=== PATIENT | female | born 1970 | race Caucasian/White ===

== ENCOUNTER 2016-11-26 18:09 | Inpatient (IN) | payer BC ==
[2016-11-26] MEDS ORDERED: HYDROmorphone 1 MG/ML 1 ML SYRINGE IVP STA ×2 (20:12→22:30)
[2016-11-26] MEDS ORDERED: METOCLOPRAMIDE 5 MG/ML 2 ML VIAL IVP STA (20:12)
--- NOTE | 2016-11-26 20:16 | ED ---
General Adult HPI - General Chief complaint: Headache Stated complaint: headache Time Seen by Provider: 11/26/16 19:52 Source: patient, family, RN notes reviewed Mode of arrival: wheelchair Limitations: no limitations - History of Present Illness Initial comments: Chief complaint and history of present illness a 46-year-old female here for complaint of headache and fever for 3 days. Nausea vomiting when she takes Motrin. Patient did not get a flu shot this year. - Related Data Home Medications Medication Instructions Recorded Confirmed Acetaminophen Tab [Tylenol Tab] 650 mg PO Q4H PRN 11/26/16 11/26/16 Ibuprofen [Motrin] 600 mg PO Q6HR PRN 11/26/16 11/26/16 Allergies Allergy/AdvReac Type Severity Reaction Status Date / Time antihistamines Allergy Unknown Uncoded 11/26/16 19:07 decongestants Allergy Unknown Uncoded 11/26/16 19:07 Review of Systems ROS Statement: Those systems with pertinent positive or pertinent negative responses have been documented in the HPI. Review of systems. The patient has a headache mild photophobia. No sore throat no chest pain no cough. Vomited once after taking Motrin. Muscle aches and pains that her whole body. No rashes. No diarrhea. All systems reviewed. Past medical problems none. Surgeries include appendectomy, , cyst on her neck and jaw. Patient's family history significant for mother with kidney cancer. Patient has ALLERGIES to antihistamines. She does not smoke she drinks occasional alcohol socially. ROS Other: All systems not noted in ROS Statement are negative. Past Medical History Past Medical History: No Reported History History of Any Multi-Drug Resistant Organisms: None Reported Past Surgical History: Appendectomy, Section Additional Past Surgical History / Comment(s): jaw, cyst on neck removed Past Psychological History: No Psychological Hx Reported Smoking Status: Former smoker Past Alcohol Use History: Occasional Past Drug Use History: None Reported General Exam - General Exam Comments Initial Comments: General: The patient is awake and alert, complaining of a headache for 3 days, fever today temp 100. Photophobia. Nausea vomiting after taking Tylenol for pain and fever. Vital signs temp 100.0 pulse 89 respiratory rate 20 pulse ox 97% room air blood pressure 166 over levators systolic and diastolic most likely due to her pain. Eye: Pupils are equal, round and reactive to light, extra-ocular movements are intact ; there is normal conjunctiva bilaterally. No signs of icterus. Ears, nose, mouth and throat: There are moist mucous membranes and no oral lesions. Neck: Neck discomfort when she looks left and right flexes. No meningismus Cardiovascular: There is a regular rate and rhythm. No murmur, rub or gallop is appreciated. Respiratory: Lungs are clear to auscultation, respirations are non-labored, breath sounds are equal. No wheezes, stridor, rales, or rhonchi. Gastrointestinal: Soft, non-distended, non-tender abdomen without masses or organomegaly noted. There is no rebound or guarding present. No CVA tenderness. Bowel sounds are unremarkable. Musculoskeletal: Normal ROM, no tenderness, There is no pedal edema. There is no calf tenderness or swelling. Sensation intact. Pulses equal bilaterally 2+. Neurological: CN II-XII intact, There are no obvious motor or sensory deficits. Coordination appears grossly intact. Speech is normal. No neuro deficits Skin: Skin is warm and dry and no rashes or lesions are noted. Limitations: no limitations Course Vital Signs 11/26/16 11/26/16 11/26/16 19:06 21:03 22:29 Temperature 100 F H 99.9 F H 99.6 F Pulse Rate 89 77 74 Respiratory 20 18 18 Rate Blood Pressure 166/89 144/81 150/76 O2 Sat by Pulse 97 95 99 Oximetry Procedures - Procedures Initial comment: Procedure; sterile technique was used for lumbar puncture. Permission was obtained from the patient the patient was given the procedure and possible complications. The patient was sitting up position. The L4 space was identified. Area was cleaned well Betadine and then anesthetized with 1% Xylocaine. #20 lumbar needle was used. She will follow fluid was obtained without difficulty. Looked clear on bedside examination. Is for samples were sent to the laboratory with request for cell count Gram stain protein glucose and culture of CSF. Patient tolerated procedure well. Betadine was washed off the area sterile bandage applied over the LP site. Patient was laid flat. Advised to stay flat for the next hour. She'll continue to receive IV fluids and [address] Agrawal Medical Decision Making - Medical Decision Making Medical decision making; white count 8.3 hemoglobin 14 hematocrit of 42. Potassium is 4.6 with a BUN of 8 creatinine 0.6 and GFR greater than 60. Glucose 109. CT the brain was done and reviewed radiologist his impression is there is no acute intracranial hemorrhage, mass effect, or midline shift identified. The ventricles and sulci within normal limits in size. The globes are intact and the visualized sinuses are clear. Impression; no acute intracranial hemorrhage , mass effect, or midline shift seen. As read by Dr. Masterson We discussed the findings of the labs and CAT scan. The patient still has a headache more in the left trapezius muscle belly did discuss possibility of a viral type meningitis several the patient agrees to an LP to rule out meningitis. The lab reports tube #4. Clear it showed 8 rbc's 350 nucleated cells of which only 17% were polys 83% mononuclear white cells glucose 81 protein 175. These numbers were discussed with infectious disease doctor, Dr. Cummins. He recommends Rocephin 2 g every 12 until the cultures and Gram stain are complete. Gram stain showed rare poly-1 nuclear's, no organisms. I explained to the patient the findings. We discussed viral versus bacterial. The patient has a mild headache. - Lab Data Result diagrams: 11/26/16 20:42 11/26/16 20:42 Lab Results 11/26/16 11/26/16 11/26/16 Range/Units 20:42 20:42 20:42 WBC 8.3 (3.8-10.6) k/uL RBC 5.03 (3.80-5.40) m/uL Hgb 14.1 (11.4-16.0) gm/dL Hct 42.3 (34.0-46.0) % MCV 84.1 (80.0-100.0) fL MCH 28.1 (25.0-35.0) pg MCHC 33.4 (31.0-37.0) g/dL RDW 12.5 (11.5-15.5) % Plt Count 269 (150-450) k/uL Neutrophils % 83 % Lymphocytes % 11 % Monocytes % 4 % Eosinophils % 0 % Basophils % 0 % Neutrophils # 6.9 (1.3-7.7) k/uL Lymphocytes # 0.9 L (1.0-4.8) k/uL Monocytes # 0.4 (0-1.0) k/uL Eosinophils # 0.0 (0-0.7) k/uL Basophils # 0.0 (0-0.2) k/uL Sodium 139 (137-145) mmol/L Potassium 4.6 (3.5-5.1) mmol/L Chloride 104 (98-107) mmol/L Carbon Dioxide 21 L (22-30) mmol/L Anion Gap 14 mmol/L BUN 8 (7-17) mg/dL Creatinine 0.60 (0.52-1.04) mg/dL Est GFR (MDRD) Af Amer >60 (>60 ml/min/1.73 sqM) Est GFR (MDRD) Non-Af >60 (>60 ml/min/1.73 sqM) Glucose 109 H (74-99) mg/dL Calcium 9.3 (8.4-10.2) mg/dL Total Bilirubin 0.8 (0.2-1.3) mg/dL AST 20 (14-36) U/L ALT 32 (9-52) U/L Alkaline Phosphatase 77 (38-126) U/L Total Protein 7.8 (6.3-8.2) g/dL Albumin 4.4 (3.5-5.0) g/dL CSF Tube Number CSF Volume CSF Appearance CSF Color CSF RBC (0-10) u/L CSF Tot Nucleated Cells (0-5) u/L CSF Mononuclear WBCs % % CSF Polynuclear WBCs % % CSF Glucose (40-70) mg/dL CSF Total Protein (12-60) mg/dL Influenza Type A RNA Not Detected (Not Detectd) Influenza Type B (PCR) Not Detected (Not Detectd) 11/26/16 Range/Units 22:17 WBC (3.8-10.6) k/uL RBC (3.80-5.40) m/uL Hgb (11.4-16.0) gm/dL Hct (34.0-46.0) % MCV (80.0-100.0) fL MCH (25.0-35.0) pg MCHC (31.0-37.0) g/dL RDW (11.5-15.5) % Plt Count (150-450) k/uL Neutrophils % % Lymphocytes % % Monocytes % % Eosinophils % % Basophils % % Neutrophils # (1.3-7.7) k/uL Lymphocytes # (1.0-4.8) k/uL Monocytes # (0-1.0) k/uL Eosinophils # (0-0.7) k/uL Basophils # (0-0.2) k/uL Sodium (137-145) mmol/L Potassium (3.5-5.1) mmol/L Chloride (98-107) mmol/L Carbon Dioxide (22-30) mmol/L Anion Gap mmol/L BUN (7-17) mg/dL Creatinine (0.52-1.04) mg/dL Est GFR (MDRD) Af Amer (>60 ml/min/1.73 sqM) Est GFR (MDRD) Non-Af (>60 ml/min/1.73 sqM) Glucose (74-99) mg/dL Calcium (8.4-10.2) mg/dL Total Bilirubin (0.2-1.3) mg/dL AST (14-36) U/L ALT (9-52) U/L Alkaline Phosphatase (38-126) U/L Total Protein (6.3-8.2) g/dL Albumin (3.5-5.0) g/dL CSF Tube Number 4 CSF Volume 1.0 CSF Appearance Clear CSF Color Colorless CSF RBC 8 (0-10) u/L CSF Tot Nucleated Cells 350 H (0-5) u/L CSF Mononuclear WBCs % 83 % CSF Polynuclear WBCs % 17 % CSF Glucose 51 (40-70) mg/dL CSF Total Protein 175 H (12-60) mg/dL Influenza Type A RNA (Not Detectd) Influenza Type B (PCR) (Not Detectd) Disposition Clinical Impression: Meningitis Disposition: ADMITTED IP TO THIS HOSP Condition: Serious
[2016-11-26] MEDS: SODIUM CHLORIDE 0.9% 1,000 ML IV STA ×2 (20:37→21:39)
[2016-11-26 21:11] LABS: Basophils % (A) 0 %; CH 28.7; CHCM 34.3; Eosinophils % (A) 0 %; HCT 42.3 % (34.0-46.0); HDW 2.73; HGB 14.1 gm/dL (11.4-16.0); Luc % (Auto) 1; Lymphocytes # (A) 0.9 k/uL (1.0-4.8); Lymphocytes % (A) 11 %; MCH 28.1 pg (25.0-35.0); MCHC 33.4 g/dL (31.0-37.0); MCV 84.1 fL (80.0-100.0); Mean Platelet Volume 7.3; Monocytes # (A) 0.4 k/uL (0-1.0); Monocytes % (A) 4 %; Neutrophils # (A) 6.9 k/uL (1.3-7.7); Neutrophils % (A) 83 %; RBC 5.03 m/uL (3.80-5.40); RDW 12.5 % (11.5-15.5); WBC 8.3 k/uL (3.8-10.6); WBC (Perox) 8.54
[2016-11-26 21:27] LABS: ALT 32 U/L (9-52); AST 20 U/L (14-36); Alkaline Phosphatase 77 U/L (38-126); Anion Gap 14 mmol/L; Blood Urea Nitrogen 8 mg/dL (7-17); Calcium 9.3 mg/dL (8.4-10.2); Carbon Dioxide 21 mmol/L (22-30); Chloride 104 mmol/L (98-107); Glucose 109 mg/dL (74-99); Non-African American GFR(MDRD) >60 (>60 ml/min/1.73 sqM); Potassium 4.6 mmol/L (3.5-5.1); Sodium 139 mmol/L (137-145); Total Bilirubin 0.8 mg/dL (0.2-1.3); Total Protein 7.8 g/dL (6.3-8.2)
--- NOTE | 2016-11-26 21:59 | CT ---
EXAMINATION TYPE: CT brain wo con DATE OF EXAM: 11/26/2016 9:52 PM COMPARISON: NONE HISTORY: Headache with nausea for [address] DLP: 1108.4 mGycm Automated exposure control for dose reduction was used. FINDINGS: There is no acute intracranial hemorrhage, mass effect, or midline shift identified. The ventricles and sulci are within normal limits in size. The globes are intact and the visualized sinuses are tasha ar. IMPRESSION: No acute intracranial hemorrhage, mass effect, or midline shift is seen.
[2016-11-26 22:53] LABS: Appearance,CSF Clear; Glucose,CSF 51 mg/dL (40-70)
[2016-11-26 22:54] LABS: Diff, Total Cells Cnt, CSF 100; Polynuclear WBC,CSF 17 %
[2016-11-27] MEDS ORDERED: cefTRIAXone 2,000 MG in SODIUM CHLORIDE 0.9% 100 ML IVPB STA (00:14)
[2016-11-27] MEDS ORDERED: NALOXONE 0.4 MG/ML 1 ML VIAL IV PRN (00:26)
[2016-11-27] MEDS ORDERED: IBUPROFEN 200 MG TAB PO PRN (00:33)
[2016-11-27] MEDS ORDERED: IBUPROFEN 600 MG TAB PO PRN (01:59)
[2016-11-27] MEDS: SODIUM CHLORIDE 0.9% 1,000 ML IV SCH ×4 (01:59→23:10)
[2016-11-27] MEDS ORDERED: PANTOPRAZOLE 40 MG/10 ML VIAL IV SCH (09:00)
[2016-11-27] MEDS: HYDROmorphone 1 MG/ML 1 ML SYRINGE IV PRN (10:26)
[2016-11-27] MEDS: cefTRIAXone 2,000 MG in SODIUM CHLORIDE 0.9% 100 ML IVPB SCH ×2 (11:08→23:05)
[2016-11-27] MEDS: ONDANSETRON 4 MG/2 ML VIAL IVP PRN (14:18)
[2016-11-27] MEDS ORDERED: SODIUM CHLORIDE 0.9% 1,000 ML IV ONE (14:20)
[2016-11-27] MEDS: KETOROLAC 30 MG/ML 1 ML VIAL IVP SCH ×3 (14:27→23:05)
[2016-11-27] MEDS: ENOXAPARIN 40 MG/0.4 ML SYRINGE SQ SCH (17:03)
--- NOTE | 2016-11-27 20:24 | HP ---
DATE OF ADMISSION: 11/27/2016 PRESENTING COMPLAINT: Headache, fever. HISTORY OF PRESENTING COMPLAINT: This is a very pleasant 46-year-old patient of Dr. Chun, chronic stable medical conditions include GERD. Patient's symptoms started on Thursday, that is 4 days ago. She started off with headache, some chills, sweating, headache was at the back of the head. Patient had a temperature of 103. Patient was given some antibiotic shot and sent home and not getting better. Having more headaches, decided to come in. She was having some neck stiffness. Patient's son had just recovered from what appeared to be a viral illness. Patient was put on ceftriaxone in the ER. Patient's CSF was suggestive of meningitis. REVIEW OF SYSTEMS: CONSTITUTIONAL: Febrile at home. HEENT: Headache, currently more with sitting up. EYES: Pupils equal. Conjunctivae normal. RESPIRATORY: None. CARDIOVASCULAR: None. GASTROINTESTINAL: None. GENITOURINARY: None. MUSCULOSKELETAL: As above. DERMATOLOGICAL: None. HEMATOLOGICAL: None. LYMPHATICS: None. PSYCHIATRY: None. NEUROLOGICAL: None. Past medical history of GERD. PAST SURGICAL HISTORY: ( ), , jaw replaced, cyst on neck removed. SOCIAL HISTORY: . 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 Does not smoke. Alcohol occasionally. Family history of stroke. HOME MEDICATIONS: 1. Motrin 600 mg q.6 p.r.n. 2. Tylenol 650 mg q.4 p.r.n. ALLERGIES: Antihistamine decongestants. On examination vital signs on presentation: Temperature 100, pulse 89, respiration 20, blood pressure 160/89, pulse ox 97% on room air. GENERAL APPEARANCE: Average build, sitting up, not in distress. EYES: Pupils equal. Conjunctivae normal. HEENT: Oral cavity normal. NECK: Able to touch her chin nearly to the chest. RESPIRATORY: Effort normal. LUNGS: Clear. CARDIOVASCULAR: First and second sounds normal. No edema. ABDOMEN: Soft, nontender. Liver and spleen not palpable. LYMPHATIC: No lymph nodes palpable in the neck or axillae. PSYCHIATRY: Alert and oriented x3. Mood and affect normal. NEUROLOGICAL: Pupils equal. Cranial nerves grossly intact. Power and sensation grossly intact. It should be noted the patient is not complaining of any photophobia. INVESTIGATIONS: White count 8.3, hemoglobin 14.1, potassium 4.6. Patient's CSF is total nuclear cells 350, total protein 135, glucose 51. Influenza type A and B is negative. CT scan of the brain unremarkable. ASSESSMENT: 1. Acute meningitis, could be viral. At the same time bacterial cannot be ruled out and the otherwise is in overall good health. 2. Gastroesophageal reflux disease. 3. Post lumbar puncture headache as the type of headache patient is having seems to be more positional when she tries to get up. PLAN: Patient empirically is on ceftriaxone. Home medications are resumed. Will increase patient's IV fluids to 150 mL/h an hour to help with any headache. Consultation to ID has been made. Care was discussed with the patient.
--- NOTE | 2016-11-27 23:39 | P.CONS ---
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 She was sick earlier the winter season. Is doing modestly well till the 3 day history of onset of significant headache associated with fever and chill but no salud rigors. Her headache worsened and she gets an appointment and was she was having nausea and emesis and feeling poorly at all times. Consider presents emergency center. Lumbar punctures performed which was abnormal. It with a she is admitted to hospital for fluid hydration antibiotic therapy antiemetics and pain control. So feeling poorly at this point in time further fluid and antiemetics requested. Patient relates that her headache is stable with current medications Vistaril quite miserable. As noted has had some nausea without hematemesis. Review of Systems HEENT:extensive headache without visual change. Denies sinus or mouth discomforts. Denies neck stiffness or pain. Denies significant oral cavity pain. Denies difficulty on swallowing. Lungs: Denies significant shortness of breath, cough, sputum production, or hemoptysis. Cardiovascular: Denies significant shortness of breath, chest pain, chest wall pain, orthopnea, dyspnea on exertion, syncope Gastrointestinal:Positive for nausea and emesis. No hematemesis or melena. No hematochezia. No salud abdominal pain. Musculoskeletal: denies significant myalgias or arthralgias. No new joint swelling. Denies new back pain. Skin: Denies new rash or lesions. No new ulcers or wounds are related.. Neuro: Dsignificant headache without visual change no weakness Psychiatric:Denies anxiety or depression. Endocrine: fatigue without weight gain or loss Past Medical History Past Medical History: No Reported History History of Any Multi-Drug Resistant Organisms: None Reported Past Surgical History: Appendectomy, Section Additional Past Surgical History / Comment(s): jaw replaced, cyst on neck removed Past Anesthesia/Blood Transfusion Reactions: No Reported Reaction Past Psychological History: No Psychological Hx Reported Additional Psychological History / Comment(s): . Lives in the family home with spouse and 2 children. 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 Patients child had a fever last week. no tobacco useand alcohol use or recre. No international travel. No experience. No animal exposures Smoking Status: Former smoker Past Alcohol Use History: Occasional Past Drug Use History: None Reported - Past Family History Father Family Medical History: CVA/TIA Medications and Allergies Home Medications and Allergies Comment(s): Current Medications Enoxaparin Sodium (Lovenox) 40 mg SQ DAILY [facility] Last Admin: 11/27/16 17:03 Dose: 40 mg Hydromorphone HCl (Dilaudid) 1 mg IV Q3HR PRN PRN Reason: Severe Pain Last Admin: 11/27/16 10:26 Dose: 1 mg Ceftriaxone Sodium 2,000 mg/ (Sodium Chloride) 100 mls @ 100 mls/hr IVPB Q12H [facility] Last Admin: 11/27/16 23:05 Dose: 100 mls/hr Sodium Chloride (Saline 0.9%) 1,000 mls @ 150 mls/hr IV .Q6H40M [facility] Last Admin: 11/27/16 23:10 Dose: 150 mls/hr Ketorolac Tromethamine (Toradol) 30 mg IVP Q6HR [facility] Stop: 12/01/16 14:19 Last Admin: 11/27/16 23:05 Dose: 30 mg Naloxone HCl (Narcan) 0.2 mg IV Q2M PRN PRN Reason: Opioid Reversal Ondansetron HCl (Zofran) 4 mg IVP Q8HR PRN PRN Reason: Nausea And Vomiting Last Admin: 11/27/16 14:18 Dose: 4 mg Pantoprazole Sodium (Protonix) 40 mg PO [id number]-[id number] [facility] Home Medications Medication Instructions Recorded Confirmed Type Acetaminophen Tab [Tylenol Tab] 650 mg PO Q4H PRN 11/26/16 11/26/16 History Ibuprofen [Motrin] 600 mg PO Q6HR PRN 11/26/16 11/26/16 History Allergies Allergy/AdvReac Type Severity Reaction Status Date / Time antihistamines Allergy Unknown Uncoded 11/26/16 19:07 decongestants Allergy Unknown Uncoded 11/26/16 19:07 Physical Exam Vitals: Vital Signs Temp Pulse Pulse Resp BP BP Pulse Ox 11/27/16 15:00 97.9 F 69 16 130/80 98 11/27/16 07:00 98.2 F 68 16 129/71 98 11/27/16 01:16 97.8 F 75 18 146/77 11/27/16 00:38 97.9 F 74 18 139/76 98 Intake and Output 11/27/16 11/27/16 11/28/16 14:59 22:59 06:59 Output Total 400 Balance -400 Output: Urine 400 Other: Voiding Method Toilet Toilet # Voids 2 HEENT: Anicteric conjunctiva are pink and moist nasal mucosa grossly intact without significant lesions, there is no thrush.does have some photophobia. Does complain of significant headache Neck: The neck is supple without significant lymphadenopathy or thyromegaly. Lungs: Good bilateral air entry without significant crackles or wheezing. There is no significant bronchial sounds. There is no egophony or dullness. Heart: Regular rate and rhythm with an audible S1-S2, no S3 no S4. There is no significant murmur click or rub, PMI was nondisplaced. Abdomen: Positive bowel sounds soft and nontender without palpable masses or organomegaly. There was no guarding or rebound. Extremities: The upper extremities have excellent pulses they are symmetric, no significant petechiae or telangiectasia. No splinter hemorrhages were noted. The lower extremities are free from significant edema. The peripheral pulses were 2+ and symmetric. Neuro: Awake alert oriented to person place and time. There are no acute new gross focal sensory motor deficits.patient appears ill from headache Results CBC & Chem 7: 11/26/16 20:42 11/26/16 20:42 Labs: Laboratory Results WBC 8.3 k/uL (3.8-10.6) 11/26/16 20:42 RBC 5.03 m/uL (3.80-5.40) 11/26/16 20:42 Hgb 14.1 gm/dL (11.4-16.0) 11/26/16 20:42 Hct 42.3 % (34.0-46.0) 11/26/16 20:42 MCV 84.1 fL (80.0-100.0) 11/26/16 20:42 MCH 28.1 pg (25.0-35.0) 11/26/16 20:42 MCHC 33.4 g/dL (31.0-37.0) 11/26/16 20:42 RDW 12.5 % (11.5-15.5) 11/26/16 20:42 Plt Count 269 k/uL (150-450) 11/26/16 20:42 Neutrophils % 83 % 11/26/16 20:42 Lymphocytes % 11 % 11/26/16 20:42 Monocytes % 4 % 11/26/16 20:42 Eosinophils % 0 % 11/26/16 20:42 Basophils % 0 % 11/26/16 20:42 Neutrophils # 6.9 k/uL (1.3-7.7) 11/26/16 20:42 Lymphocytes # 0.9 k/uL (1.0-4.8) L 11/26/16 20:42 Monocytes # 0.4 k/uL (0-1.0) 11/26/16 20:42 Eosinophils # 0.0 k/uL (0-0.7) 11/26/16 20:42 Basophils # 0.0 k/uL (0-0.2) 11/26/16 20:42 Sodium 139 mmol/L (137-145) 11/26/16 20:42 Potassium 4.6 mmol/L (3.5-5.1) 11/26/16 20:42 Chloride 104 mmol/L (98-107) 11/26/16 20:42 Carbon Dioxide 21 mmol/L (22-30) L 11/26/16 20:42 Anion Gap 14 mmol/L 11/26/16 20:42 BUN 8 mg/dL (7-17) 11/26/16 20:42 Creatinine 0.60 mg/dL (0.52-1.04) 11/26/16 20:42 Est GFR (MDRD) Af Amer >60 (>60 ml/min/1.73 sqM) 11/26/16 20:42 Est GFR (MDRD) Non-Af >60 (>60 ml/min/1.73 sqM) 11/26/16 20:42 Glucose 109 mg/dL (74-99) H 11/26/16 20:42 Calcium 9.3 mg/dL (8.4-10.2) 11/26/16 20:42 Total Bilirubin 0.8 mg/dL (0.2-1.3) 11/26/16 20:42 AST 20 U/L (14-36) 11/26/16 20:42 ALT 32 U/L (9-52) 11/26/16 20:42 Alkaline Phosphatase 77 U/L (38-126) 11/26/16 20:42 Total Protein 7.8 g/dL (6.3-8.2) 11/26/16 20:42 Albumin 4.4 g/dL (3.5-5.0) 11/26/16 20:42 CSF Tube Number 4 11/26/16 22:17 CSF Volume 1.0 11/26/16 22: CSF Appearance Clear 11/26/16 22: CSF Color Colorless 11/26/16 22:17 CSF RBC 8 u/L (0-10) 11/26/16 22:17 CSF Tot Nucleated Cells 350 u/L (0-5) H 11/26/16 22:17 CSF Mononuclear WBCs % 83 % 11/26/16 22: CSF Polynuclear WBCs % 17 % 11/26/16 22:17 CSF Glucose 51 mg/dL (40-70) 11/26/16 22: CSF Total Protein 175 mg/dL (12-60) H 11/26/16 22:17 Influenza Type A RNA Not Detected (Not Detectd) 11/26/16 20:42 Influenza Type B (PCR) Not Detected (Not Detectd) 11/26/16 20:42 Microbiology 11/26/16 22:17 Cerebral Spinal Fluid CSF Gram Stain - Preliminary CT Scan - head: report reviewed (no acute bleed) Assessment and Plan (1) Aseptic meningitis Narrative/Plan: 46-year-old female presents to Hospital from home with significant headache. She's had of her life. Associated with nausea and emesis. She has some photophobia. Does not have severe stiff neck. He does not have significant pain upon neck flexion or leg flexion. CSF is abnormal with elevated white blood cell count mostly with lymphocytosis. However has mild hypoglycorrhachia and elevated protein. The patient does not have classic bacterial meningitis. The Gram stain is become available for evaluation and is negative. There is evidence of white blood cells being seen. It is atypical season for aseptic meningitis. There is no evidence of influenza at this time Birl infection seems to be most likely but will pending cultures utilize antibiotic therapy with Rocephin Patient continues to have nausea and emesis. Another liter of normal saline is requested because of her dehydration. Zofran is requested. For the significant headache Toradol is also requested. We'll monitor. If Gram stain and culture remained negative and she improves we'll discontinue antibiotic therapy. Continue aggressive supportive care. Status: Acute (2) Nausea Status: Acute (3) Fever Status: Acute (4) Elevated CSF protein Status: Acute
[2016-11-28] MEDS: ONDANSETRON 4 MG/2 ML VIAL IVP PRN ×3 (00:06→18:34)
[2016-11-28] MEDS: HYDROmorphone 1 MG/ML 1 ML SYRINGE IV PRN ×3 (00:06→18:34)
[2016-11-28] MEDS: KETOROLAC 30 MG/ML 1 ML VIAL IVP SCH ×3 (06:10→23:27)
[2016-11-28] MEDS: SODIUM CHLORIDE 0.9% 1,000 ML IV SCH ×3 (06:13→20:47)
[2016-11-28 08:17] LABS: Basophils # (A) 0.1 k/uL (0-0.2); Basophils % (A) 1 %; CH 28.7; CHCM 34.3; Eosinophils # (A) 0.1 k/uL (0-0.7); Eosinophils % (A) 1 %; HCT 37.4 % (34.0-46.0); HDW 2.78; HGB 12.8 gm/dL (11.4-16.0); Luc # (Auto) 0.16; Luc % (Auto) 3; Lymphocytes # (A) 1.3 k/uL (1.0-4.8); Lymphocytes % (A) 21 %; MCH 28.8 pg (25.0-35.0); MCHC 34.3 g/dL (31.0-37.0); Mean Platelet Volume 7.7; Monocytes # (A) 0.3 k/uL (0-1.0); Monocytes % (A) 5 %; Neutrophils # (A) 4.2 k/uL (1.3-7.7); Neutrophils % (A) 69 %; RBC 4.45 m/uL (3.80-5.40); RDW 12.5 % (11.5-15.5); WBC 6.1 k/uL (3.8-10.6); WBC (Perox) 6.57
[2016-11-28 08:43] LABS: Anion Gap 8 mmol/L; Blood Urea Nitrogen 6 mg/dL (7-17); Calcium 8.7 mg/dL (8.4-10.2); Carbon Dioxide 26 mmol/L (22-30); Chloride 105 mmol/L (98-107); Glucose 90 mg/dL (74-99); Non-African American GFR(MDRD) >60 (>60 ml/min/1.73 sqM); Potassium 4.2 mmol/L (3.5-5.1); Sodium 139 mmol/L (137-145)
[2016-11-28] MEDS: ENOXAPARIN 40 MG/0.4 ML SYRINGE SQ SCH (10:58)
[2016-11-28] MEDS: PANTOPRAZOLE 40 MG TABLET PO SCH (10:59)
[2016-11-28] MEDS: cefTRIAXone 2,000 MG in SODIUM CHLORIDE 0.9% 100 ML IVPB SCH ×2 (12:49→23:23)
--- NOTE | 2016-11-28 20:02 | PN ---
DATE OF SERVICE: 11/28/2016 PRESENTING COMPLAINT: Headache, fever. INTERVAL HISTORY: This patient is suspected to have viral meningitis. Workup ( ) otherwise cultures have been negative. Patient is empirically on ceftriaxone. Patient also seems to have post spinal tap headache; hence IV fluids were increased. The patient overall looks better but is still having the headaches. Oral intake has been low. No fever otherwise. Review of systems done for constitutional, cardiovascular, GI, pulmonary; relevant findings as above. There is no photophobia, no neck stiffness. Current medications are reviewed that include IV ceftriaxone. On examination, temperature 99, pulse 74, respiration 18, blood pressure 146/81, pulse ox 96% on room air. GENERAL APPEARANCE: Appears comfortable, not in distress. Propped up comfortably. EYES: Pupils equal. Conjunctivae normal. NECK: JVD not raised. Mass not palpable. RESPIRATORY: Effort normal. LUNGS: Clear. CARDIOVASCULAR: First and second sounds normal. ABDOMEN: Soft, nontender. Liver and spleen not palpable. PSYCHIATRY: Alert and oriented x3. Mood and affect normal. NEUROLOGICAL: Able to touch her chin to the chest. MUSCULOSKELETAL: Some tenderness in the nuchal line, a little bit in the neck. But neck is otherwise supple. INVESTIGATIONS: White count 6.1, hemoglobin 12.8. Patient's Gram stain is not showing any organisms. Final cultures are still pending. ASSESSMENT: 1. Acute vital meningitis with clinical improvement. 2. Severe cephalgia from meningitis and also from post spinal tap headache. 3. Gastroesophageal reflux disease. 4. Post spinal tap headache. PLAN: Overall patient is actually looking better. Continue with high-volume fluids, ceftriaxone. Follow with Dr. Cummins. Care was discussed with the patient.
[2016-11-28] MEDS ORDERED: methylPREDNISolone SOD SUCCI 125 MG/2 ML VIAL IV STA (20:28)
--- NOTE | 2016-11-28 21:17 | P.PN ---
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 She was sick earlier the winter season. Is doing modestly well till the 3 day history of onset of significant headache associated with fever and chill but no salud rigors. Her headache worsened and she gets an appointment and was she was having nausea and emesis and feeling poorly at all times. Consider presents emergency center. Lumbar punctures performed which was abnormal. It with a she is admitted to hospital for fluid hydration antibiotic therapy antiemetics and pain control. So feeling poorly at this point in time further fluid and antiemetics requested. Patient relates that her headache is stable with current medications quite miserable. As noted has had some nausea without hematemesis. Now with admission, hydration, and pain medications and Zofran she's feeling somewhat better. Her medical questions are answered. Objective - Vital Signs Vital signs: Vital Signs Temp 98.7 F 11/28/16 15:00 Pulse 71 11/28/16 15:00 Resp 18 11/28/16 15:00 BP 138/76 11/28/16 15:00 Pulse Ox 96 11/28/16 15:00 Intake & Output 11/28/16 11/28/16 11/29/16 06:59 18:59 06:59 Intake Total 200 Balance 200 Intake: Oral 200 Other: Voiding Method Toilet Toilet Toilet # Voids 1 2 # Bowel Movements 0 - Exam HEENT: Anicteric conjunctiva are pink and moist nasal mucosa grossly intact without significant lesions, there is no thrush.does have some photophobia. Does complain of significant headache Neck: The neck is supple without significant lymphadenopathy or thyromegaly. Lungs: Good bilateral air entry without significant crackles or wheezing. There is no significant bronchial sounds. There is no egophony or dullness. Heart: Regular rate and rhythm with an audible S1-S2, no S3 no S4. There is no significant murmur click or rub, PMI was nondisplaced. Abdomen: Positive bowel sounds soft and nontender without palpable masses or organomegaly. There was no guarding or rebound. Extremities: The upper extremities have excellent pulses they are symmetric, no significant petechiae or telangiectasia. No splinter hemorrhages were noted. The lower extremities are free from significant edema. The peripheral pulses were 2+ and symmetric. Neuro: Awake alert oriented to person place and time. There are no acute new gross focal sensory motor deficits.patient appears less ill today headache is improved about 30% Results - Labs CBC & Chem 7: 11/28/16 07:42 11/28/16 07:42 Labs: Abnormal Lab Results - Last 24 Hours (Table) 11/28/16 Range/Units 07:42 BUN 6 L (7-17) mg/dL Laboratory Results WBC 6.1 k/uL (3.8-10.6) 11/28/16 07:42 RBC 4.45 m/uL (3.80-5.40) 11/28/16 07:42 Hgb 12.8 gm/dL (11.4-16.0) 11/28/16 07:42 Hct 37.4 % (34.0-46.0) 11/28/16 07:42 MCV 84.0 fL (80.0-100.0) 11/28/16 07:42 MCH 28.8 pg (25.0-35.0) 11/28/16 07:42 MCHC 34.3 g/dL (31.0-37.0) 11/28/16 07:42 RDW 12.5 % (11.5-15.5) 11/28/16 07:42 Plt Count 213 k/uL (150-450) 11/28/16 07:42 Neutrophils % 69 % 11/28/16 07:42 Lymphocytes % 21 % 11/28/16 07:42 Monocytes % 5 % 11/28/16 07:42 Eosinophils % 1 % 11/28/16 07:42 Basophils % 1 % 11/28/16 07:42 Neutrophils # 4.2 k/uL (1.3-7.7) 11/28/16 07:42 Lymphocytes # 1.3 k/uL (1.0-4.8) 11/28/16 07:42 Monocytes # 0.3 k/uL (0-1.0) 11/28/16 07:42 Eosinophils # 0.1 k/uL (0-0.7) 11/28/16 07:42 Basophils # 0.1 k/uL (0-0.2) 11/28/16 07:42 Sodium 139 mmol/L (137-145) 11/28/16 07:42 Potassium 4.2 mmol/L (3.5-5.1) 11/28/16 07:42 Chloride 105 mmol/L (98-107) 11/28/16 07:42 Carbon Dioxide 26 mmol/L (22-30) 11/28/16 07:42 Anion Gap 8 mmol/L 11/28/16 07:42 BUN 6 mg/dL (7-17) L 11/28/16 07:42 Creatinine 0.65 mg/dL (0.52-1.04) 11/28/16 07:42 Est GFR (MDRD) Af Amer >60 (>60 ml/min/1.73 sqM) 11/28/16 07:42 Est GFR (MDRD) Non-Af >60 (>60 ml/min/1.73 sqM) 11/28/16 07:42 Glucose 90 mg/dL (74-99) 11/28/16 07:42 Calcium 8.7 mg/dL (8.4-10.2) 11/28/16 07:42 Total Bilirubin 0.8 mg/dL (0.2-1.3) 11/26/16 20:42 AST 20 U/L (14-36) 11/26/16 20:42 ALT 32 U/L (9-52) 11/26/16 20:42 Alkaline Phosphatase 77 U/L (38-126) 11/26/16 20:42 Total Protein 7.8 g/dL (6.3-8.2) 11/26/16 20:42 Albumin 4.4 g/dL (3.5-5.0) 11/26/16 20:42 CSF Tube Number 4 11/26/16 22:17 CSF Volume 1.0 11/26/16 22:17 CSF Appearance Clear 11/26/16 22:17 CSF Color Colorless 11/26/16 22:17 CSF RBC 8 u/L (0-10) 11/26/16 22:17 CSF Tot Nucleated Cells 350 u/L (0-5) H 11/26/16 22:17 CSF Mononuclear WBCs % 83 % 11/26/16 22:17 CSF Polynuclear WBCs % 17 % 11/26/16 22:17 CSF Glucose 51 mg/dL (40-70) 11/26/16 22:17 CSF Total Protein 175 mg/dL (12-60) H 11/26/16 22:17 Influenza Type A RNA Not Detected (Not Detectd) 11/26/16 20:42 Influenza Type B (PCR) Not Detected (Not Detectd) 11/26/16 20:42 Microbiology 11/26/16 22:17 Cerebral Spinal Fluid CSF Gram Stain - Preliminary 11/26/16 22:17 Cerebral Spinal Fluid CSF Culture - Preliminary Assessment and Plan (1) Aseptic meningitis Narrative/Plan: 46-year-old female presents to Hospital from home with significant headache. She's had of her life. Associated with nausea and emesis. She has some photophobia. Does not have severe stiff neck. He does not have significant pain upon neck flexion or leg flexion. CSF is abnormal with elevated white blood cell count mostly with lymphocytosis. However has mild hypoglycorrhachia and elevated protein. The patient does not have classic bacterial meningitis. The Gram stain is become available for evaluation and is negative. There is evidence of white blood cells being seen. It is atypical season for aseptic meningitis. There is no evidence of influenza at this time Birl infection seems to be most likely but will pending cultures utilize antibiotic therapy with Rocephin Patient continues to have nausea and emesis. Another liter of normal saline is requested because of her dehydration. Zofran is requested. For the significant headache Toradol is also requested. Show some improvement with hydration, current pain medications, and antinausea treatment. She's had some improvement of her appetite. She is about 30% improved. We'll give a one-time dose of Solu-Medrol also see if we can improve this significant inflammation of the meninges. If the cultures of the CSF remained negative in the morning her Rocephin should be discontinued. At discharge she'll need no antibiotic or antiviral therapy. But will need ongoing treatment for pain. Status: Acute (2) Nausea Status: Acute (3) Fever Status: Acute (4) Elevated CSF protein Status: Acute
[2016-11-29] MEDS: KETOROLAC 30 MG/ML 1 ML VIAL IVP SCH ×4 (00:59→17:54)
[2016-11-29] MEDS: HYDROmorphone 1 MG/ML 1 ML SYRINGE IV PRN ×2 (03:19→11:02)
[2016-11-29] MEDS: ONDANSETRON 4 MG/2 ML VIAL IVP PRN ×2 (03:19→11:02)
[2016-11-29] MEDS: SODIUM CHLORIDE 0.9% 1,000 ML IV SCH ×4 (03:26→23:00)
[2016-11-29] MEDS: PANTOPRAZOLE 40 MG TABLET PO SCH (07:26)
[2016-11-29] MEDS: ENOXAPARIN 40 MG/0.4 ML SYRINGE SQ SCH (07:27)
--- NOTE | 2016-11-29 14:53 | PN ---
Patient is admitted for viral meningitis, off antibiotics now. Patient's headache is improved 50%, was started on Fioricet. Avoid Dilaudid and continue with Toradol. REVIEW OF SYSTEMS: CARDIOVASCULAR: No chest pain, no orthopnea, no PND, no palpitations. PULMONARY: Denied any shortness of breath. No cough or hemoptysis. GASTROINTESTINAL: No diarrhea, nausea or vomiting. No abdominal pain. Normoactive bowel sounds. NEUROLOGIC: As mentioned above. Medications were reviewed and medication changes as mentioned in the interval history. PHYSICAL EXAMINATION: VITAL SIGNS: Temperature 97.8, pulse of 76, respiratory rate of 16, blood pressure 136/78, saturating at 97% on room air. GENERAL: The patient is alert and oriented x3, not in any acute distress. Well developed, well nourished. HEENT: Pupils are round and equally reacting to light. EOMI. No scleral icterus. No conjunctival pallor. Normocephalic, atraumatic. No pharyngeal erythema. No thyromegaly. CARDIOVASCULAR: S1 and S2 present. No murmurs, rubs, or gallops. PULMONARY: Chest is clear to auscultation, no wheezing or crackles. ABDOMEN: Soft, nontender, nondistended, normoactive bowel sounds. No palpable organomegaly. MUSCULOSKELETAL: No joint swelling or deformity. EXTREMITIES: No cyanosis, clubbing, or pedal edema. NEUROLOGICAL: Gross neurological examination did not reveal any focal deficits. SKIN: No rashes. LABORATORY DATA: None available from today. I reviewed CBC and CMP essentially within normal limits. I reviewed all her labs from admission. Patient appears to have septic or viral meningitis. ASSESSMENT AND PLAN: 1. Acute viral meningitis or septic meningitis. 2. Severe cephalgia from meningitis. 3. Gastroesophageal reflux disease. PLAN: Continue with present medications, possibility of discharge tomorrow on Fioricet and etodolac for headache. Patient is otherwise clinically doing well. The patient's photophobia improved, headache improved 50%.
[2016-11-29] MEDS: BUTALB/APAP/CAFF 50-325-40MG TAB PO PRN ×2 (16:57→22:59)
[2016-11-30] MEDS: KETOROLAC 30 MG/ML 1 ML VIAL IVP SCH ×3 (01:25→12:53)
[2016-11-30] MEDS: ENOXAPARIN 40 MG/0.4 ML SYRINGE SQ SCH (08:22)
[2016-11-30] MEDS: PANTOPRAZOLE 40 MG TABLET PO SCH (08:22)
[2016-11-30 08:25] VITALS: BP 136/71; PULSE 71; RESP 16
[2016-11-30] MEDS: SODIUM CHLORIDE 0.9% 1,000 ML IV SCH (09:38)
[2016-11-30] MEDS ORDERED: DOCUSATE 100 MG CAP PO SCH (10:15)
[2016-11-30] MEDS: BUTALB/APAP/CAFF 50-325-40MG TAB PO PRN (10:18)
[2016-11-30 10:22] VITALS: TEMP 99.3
--- NOTE | 2016-11-30 17:24 | DS ---
DATE OF ADMISSION: 11/27/2016 DATE OF DISCHARGE: 11/30/2016 Patient is admitted secondary to viral meningitis. Patient has improved symptoms. Patient is still having a little bit of headache for which patient will be discharged on medications for that and patient was seen and examined on the day of discharge. Vitals are stable. PHYSICAL EXAMINATION: GENERAL: The patient is alert and oriented x3, not in any acute distress. Well developed, well nourished. HEENT: Pupils are round and equally reacting to light. EOMI. No scleral icterus. No conjunctival pallor. Normocephalic, atraumatic. No pharyngeal erythema. No thyromegaly. CARDIOVASCULAR: S1 and S2 present. No murmurs, rubs, or gallops. PULMONARY: Chest is clear to auscultation, no wheezing or crackles. ABDOMEN: Soft, nontender, nondistended, normoactive bowel sounds. No palpable organomegaly. MUSCULOSKELETAL: No joint swelling or deformity. EXTREMITIES: No cyanosis, clubbing, or pedal edema. NEUROLOGICAL: Gross neurological examination did not reveal any focal deficits. SKIN: No rashes. Patient will seen Dr. Jaime Chun in 3 to 7 days. Activity as tolerated. Regular diet. Patient has aseptic meningitis without any evidence of HSV.
== END 2016-11-30 14:16 | disposition home or self-care (01) | DRG 99 ==
LOC: EC 18:09 → 4MS4W 11-27 00:27
PROVIDERS: ADMIT Hospitalist; ATTEND Hospitalist
PROC: 009U3ZX Drainage of Spinal Canal, Percutaneous Approach, Diagnostic (ICD-10-PCS; principal; 2016-11-26)
DX: G03.0 Nonpyogenic meningitis (principal); E86.0 Dehydration; K21.9 Gastro-esophageal reflux disease without esophagitis; G97.1 Other reaction to spinal and lumbar puncture; Y84.4 Aspiration of fluid as the cause of abnormal reaction of the patient, or of later complication, without mention of misadventure at the time of the procedure; Z87.891 Personal history of nicotine dependence; Z79.899 Other long term (current) drug therapy
CPT/HCPCS: 36415; 62270; 70450; 80048; 80053; 82945; 84157; 85025; 87070; 87205; 87502; 89050; 93005; 96361; 96365; 96375; 96376; 99285

== ENCOUNTER 2017-04-22 13:52 | Observation (INO) | payer BC ==
[2017-04-22 14:01] LABS: Glucose,Whole Blood 130 mg/dL (75-99)
[2017-04-22] MEDS ORDERED: SODIUM CHLORIDE 0.9% 1,000 ML IV STA (14:01)
[2017-04-22] MEDS ORDERED: SODIUM CHLORIDE 0.9% 500 ML IV STA (14:01)
--- NOTE | 2017-04-22 14:02 | ED ---
General Adult HPI - General Chief complaint: Neuro Symptoms/Deficit Stated complaint: POSS CVA Time Seen by Provider: 04/22/17 14:01 Source: EMS, RN notes reviewed, old records reviewed Mode of arrival: EMS Limitations: no limitations - History of Present Illness Initial comments: This is a 47-year-old female ER for evaluation of neurological complaints. Right-sided weakness, numbness and tingling, memory deficit. Patient has no prior history of heart disease, no prior history of stroke, no family history of stroke or heart disease. Numbness and tingling has persisted on and off. No trauma. No other acute symptoms, no change in medications no drugs or alcohol abuse. No trauma patient does have recent history of spinal meningitis which resolved without neurological deficit - Related Data Home Medications Medication Instructions Recorded Confirmed Cetirizine HCl [Children's Zyrtec 10 mg PO DAILY 04/22/17 04/22/17 Chewable] Montelukast [Singulair] 10 mg PO HS 04/22/17 04/22/17 Multivitamins, Thera [Multivitamin 1 tab PO DAILY 04/22/17 04/22/17 (formulary)] Allergies Allergy/AdvReac Type Severity Reaction Status Date / Time antihistamines Allergy Unknown Uncoded 11/26/16 19:07 decongestants Allergy Unknown Uncoded 11/26/16 19:07 Review of Systems ROS Statement: Those systems with pertinent positive or pertinent negative responses have been documented in the HPI. ROS Other: All systems not noted in ROS Statement are negative. Past Medical History Past Medical History: No Reported History History of Any Multi-Drug Resistant Organisms: None Reported Past Surgical History: Appendectomy, Section Additional Past Surgical History / Comment(s): jaw replaced, cyst on neck removed Past Anesthesia/Blood Transfusion Reactions: No Reported Reaction Past Psychological History: No Psychological Hx Reported Smoking Status: Former smoker Past Alcohol Use History: Occasional Past Drug Use History: None Reported - Past Family History Father Family Medical History: CVA/TIA General Exam - General Exam Comments Initial Comments: NIH of 0 Limitations: no limitations General appearance: alert, in no apparent distress Head exam: Present: atraumatic, normocephalic, normal inspection Eye exam: Present: normal appearance, PERRL, EOMI. Absent: scleral icterus, conjunctival injection, periorbital swelling ENT exam: Present: normal exam, mucous membranes moist Neck exam: Present: normal inspection. Absent: tenderness, meningismus, lymphadenopathy Respiratory exam: Present: normal lung sounds bilaterally. Absent: respiratory distress, wheezes, rales, rhonchi, stridor Cardiovascular Exam: Present: regular rate, normal rhythm, normal heart sounds. Absent: systolic murmur, diastolic murmur, rubs, gallop, clicks GI/Abdominal exam: Present: soft, normal bowel sounds. Absent: distended, tenderness, guarding, rebound, rigid Extremities exam: Present: normal inspection, full ROM, normal capillary refill. Absent: tenderness, pedal edema, joint swelling, calf tenderness Back exam: Present: normal inspection Neurological exam: Present: alert, oriented X3, CN II-XII intact Psychiatric exam: Present: normal affect, normal mood Skin exam: Present: warm, dry, intact, normal color. Absent: rash Course Vital Signs 04/22/17 04/22/17 04/22/17 13:56 14:15 14:30 Temperature 98.2 F Pulse Rate 95 81 91 Respiratory 22 18 18 Rate Blood Pressure 169/125 183/79 167/83 O2 Sat by Pulse 100 99 99 Oximetry 04/22/17 04/22/17 04/22/17 15:00 16:00 16:29 Temperature Pulse Rate 87 85 88 Respiratory 18 18 18 Rate Blood Pressure 161/74 138/78 128/72 O2 Sat by Pulse 96 96 99 Oximetry - Reevaluation(s) Reevaluation #1: 04/22/17 16:41 Spoke with patient greater than 50 minutes regarding signs and symptoms of EKG Findings - EKG Comments: EKG Findings:: EKG shows normal sinus rhythm rate of 89, VA 156, QRS 04, QTC 452 Medical Decision Making - Medical Decision Making 47 female in the ER for CVA, TIA type symptoms. Patient's of visit August, will admit for neurological evaluation - Lab Data Result diagrams: 04/22/17 14:20 04/22/17 14:20 Lab Results 04/22/17 04/22/17 04/22/17 Range/Units 13:59 14:20 14:20 WBC 6.9 (3.8-10.6) k/uL RBC 4.28 (3.80-5.40) m/uL Hgb 12.2 (11.4-16.0) gm/dL Hct 36.3 (34.0-46.0) % MCV 84.9 (80.0-100.0) fL MCH 28.5 (25.0-35.0) pg MCHC 33.6 (31.0-37.0) g/dL RDW 13.8 (11.5-15.5) % Plt Count 271 (150-450) k/uL Neutrophils % 73 % Lymphocytes % 19 % Monocytes % 4 % Eosinophils % 2 % Basophils % 1 % Neutrophils # 5.1 (1.3-7.7) k/uL Lymphocytes # 1.3 (1.0-4.8) k/uL Monocytes # 0.3 (0-1.0) k/uL Eosinophils # 0.1 (0-0.7) k/uL Basophils # 0.0 (0-0.2) k/uL PT (9.0-12.0) sec INR (<1.2) APTT (22.0-30.0) sec Sodium (137-145) mmol/L Potassium (3.5-5.1) mmol/L Chloride (98-107) mmol/L Carbon Dioxide (22-30) mmol/L Anion Gap mmol/L BUN (7-17) mg/dL Creatinine (0.52-1.04) mg/dL Est GFR (MDRD) Af Amer (>60 ml/min/1.73 sqM) Est GFR (MDRD) Non-Af (>60 ml/min/1.73 sqM) Glucose (74-99) mg/dL POC Glucose (mg/dL) 130 H (75-99) mg/dL POC Glu Perishable Freight Inspector ID McDaid, Amber Calcium (8.4-10.2) mg/dL Phosphorus (2.5-4.5) mg/dL Magnesium (1.6-2.3) mg/dL Total Bilirubin (0.2-1.3) mg/dL AST (14-36) U/L ALT (9-52) U/L Alkaline Phosphatase (38-126) U/L Total Creatine Kinase 108 (30-135) U/L CK-MB (CK-2) 0.8 (0.0-2.4) ng/mL CK-MB (CK-2) Rel Index 0.7 Troponin I <0.012 (0.000-0.034) ng/mL Total Protein (6.3-8.2) g/dL Albumin (3.5-5.0) g/dL Urine Color Urine Appearance (Clear) Urine pH (5.0-8.0) Ur Specific [place] (1.001-1.035) Urine Protein (Negative) Urine Glucose (UA) (Negative) Urine Ketones (Negative) Urine Blood (Negative) Urine Nitrite (Negative) Urine Bilirubin (Negative) Urine Urobilinogen (<2.0) mg/dL Ur Leukocyte Esterase (Negative) 04/22/17 04/22/17 04/22/17 Range/Units 14:20 14:20 14:36 WBC (3.8-10.6) k/uL RBC (3.80-5.40) m/uL Hgb (11.4-16.0) gm/dL Hct (34.0-46.0) % MCV (80.0-100.0) fL MCH (25.0-35.0) pg MCHC (31.0-37.0) g/dL RDW (11.5-15.5) % Plt Count (150-450) k/uL Neutrophils % % Lymphocytes % % Monocytes % % Eosinophils % % Basophils % % Neutrophils # (1.3-7.7) k/uL Lymphocytes # (1.0-4.8) k/uL Monocytes # (0-1.0) k/uL Eosinophils # (0-0.7) k/uL Basophils # (0-0.2) k/uL PT 10.5 (9.0-12.0) sec INR 1.0 (<1.2) APTT 22.0 (22.0-30.0) sec Sodium 141 (137-145) mmol/L Potassium 3.9 (3.5-5.1) mmol/L Chloride 106 (98-107) mmol/L Carbon Dioxide 25 (22-30) mmol/L Anion Gap 10 mmol/L BUN 9 (7-17) mg/dL Creatinine 0.60 (0.52-1.04) mg/dL Est GFR (MDRD) Af Amer >60 (>60 ml/min/1.73 sqM) Est GFR (MDRD) Non-Af >60 (>60 ml/min/1.73 sqM) Glucose 112 H (74-99) mg/dL POC Glucose (mg/dL) (75-99) mg/dL POC Glu Perishable Freight Inspector ID Calcium 9.2 (8.4-10.2) mg/dL Phosphorus 3.0 (2.5-4.5) mg/dL Magnesium 1.8 (1.6-2.3) mg/dL Total Bilirubin 0.4 (0.2-1.3) mg/dL AST 23 (14-36) U/L ALT 40 (9-52) U/L Alkaline Phosphatase 87 (38-126) U/L Total Creatine Kinase (30-135) U/L CK-MB (CK-2) (0.0-2.4) ng/mL CK-MB (CK-2) Rel Index Troponin I (0.000-0.034) ng/mL Total Protein 6.9 (6.3-8.2) g/dL Albumin 4.0 (3.5-5.0) g/dL Urine Color Colorless Urine Appearance Clear (Clear) Urine pH 7.0 (5.0-8.0) Ur Specific [place] 1.002 (1.001-1.035) Urine Protein Negative (Negative) Urine Glucose (UA) Negative (Negative) Urine Ketones Negative (Negative) Urine Blood Negative (Negative) Urine Nitrite Negative (Negative) Urine Bilirubin Negative (Negative) Urine Urobilinogen <2.0 (<2.0) mg/dL Ur Leukocyte Esterase Negative (Negative) - Radiology Data Radiology results: report reviewed (CT brain is negative for acute disease), image reviewed Disposition Clinical Impression: Cerebrovascular accident, Transient cerebral ischemia Disposition: ADMITTED IP TO THIS HOSP Condition: Fair Referrals: Jaime Chun MD [Primary Care Provider] - 1-2 days
--- NOTE | 2017-04-22 14:27 | CT ---
EXAMINATION TYPE: CT brain wo con DATE OF EXAM: 04/22/2017 COMPARISON: 11/26/16 HISTORY: 738.2 CT DLP: Patient complains of episode of bilateral vision loss and right leg weakness. Unenhanced CT of the brain was performed. The ventricles, basal cisterns and sulci overlying the cerebral convexities demonstrate a normal appe arance. There is no evidence for intracranial hemorrhage or sulcal effacement. No mass effects are seen. Osseous calvarium is intact. If symptoms persist consider MRI as clinically warranted. IMPRESSION: 1. No acute intracranial process is seen at this time.
[2017-04-22 14:35] LABS: Basophils % (A) 1 %; CH 29.3; CHCM 34.7; Eosinophils # (A) 0.1 k/uL (0-0.7); Eosinophils % (A) 2 %; HCT 36.3 % (34.0-46.0); HDW 3.08; HGB 12.2 gm/dL (11.4-16.0); Luc # (Auto) 0.08; Luc % (Auto) 1; Lymphocytes # (A) 1.3 k/uL (1.0-4.8); Lymphocytes % (A) 19 %; MCH 28.5 pg (25.0-35.0); MCHC 33.6 g/dL (31.0-37.0); MCV 84.9 fL (80.0-100.0); Monocytes # (A) 0.3 k/uL (0-1.0); Monocytes % (A) 4 %; Neutrophils # (A) 5.1 k/uL (1.3-7.7); Neutrophils % (A) 73 %; RBC 4.28 m/uL (3.80-5.40); RDW 13.8 % (11.5-15.5); WBC 6.9 k/uL (3.8-10.6); WBC (Perox) 6.56
[2017-04-22 14:42] LABS: ALT 40 U/L (9-52); AST 23 U/L (14-36); Alkaline Phosphatase 87 U/L (38-126); Anion Gap 10 mmol/L; Blood Urea Nitrogen 9 mg/dL (7-17); Calcium 9.2 mg/dL (8.4-10.2); Carbon Dioxide 25 mmol/L (22-30); Chloride 106 mmol/L (98-107); Glucose 112 mg/dL (74-99); Magnesium 1.8 mg/dL (1.6-2.3); Non-African American GFR(MDRD) >60 (>60 ml/min/1.73 sqM); Potassium 3.9 mmol/L (3.5-5.1); Prothrombin Time 10.5 sec (9.0-12.0); Sodium 141 mmol/L (137-145); Total Bilirubin 0.4 mg/dL (0.2-1.3); Total Protein 6.9 g/dL (6.3-8.2)
[2017-04-22 14:46] LABS: Appearance,Urine Clear (Clear); Bilirubin,Urine Negative (Negative); Glucose,Urine (UA) Negative (Negative); Ketones,Urine Negative (Negative); Leukocyte Esterase,Urine Negative (Negative); Nitrite,Urine Negative (Negative); Protein,Urine Negative (Negative); Specific Gravity,Urine 1.002 (1.001-1.035); UA Billing (MACRO vs. MICRO) CHEM; Urobilinogen,Urine <2.0 mg/dL (<2.0)
[2017-04-22 15:01] LABS: Creatine Kinase 108 U/L (30-135)
[2017-04-22 15:14] LABS: Creatine Kinase MB 0.8 ng/mL (0.0-2.4); Troponin I <0.012 ng/mL (0.000-0.034)
[2017-04-22] MEDS ORDERED: MORPHINE SULFATE 4 MG/ML SYRINGE IVP STA (16:17)
[2017-04-22] MEDS ORDERED: ASPIRIN 325 MG TAB PO STA (16:34)
[2017-04-22] MEDS: SODIUM CHLORIDE 0.9% 1,000 ML IV SCH (17:28)
[2017-04-22] MEDS: HYDROcodone/APAP 5-325MG 1 EACH TAB PO PRN (20:09)
[2017-04-22 21:36] VITALS: BMI 30.9
--- NOTE | 2017-04-22 22:58 | P.CNNES ---
History of Present Illness Consult date: 04/22/17 History of Present Illness: The patient is a 47-year-old right-handed white female who reports that she was at work around 1150 in the morning and she developed right eyes blurry vision and she couldn't see the computer screen very well. She states that at the same time her thoughts seemed somewhat confused and her right hand and right foot became numb. She felt a little better afterward and she went to lunch. She drove to [place] and she spoke to friends on the phone telling them what had happened and she was not able to recall the name of the place where she was having lunch even though she goes there often. Her friend had coworker had taken her blood pressure at work and it was extremely high. EMS was called and she was brought to the hospital. The entire episode lasted for about 2 hours. She did develop a headache during this. Headache was in the occiput. She continues to have a headache. Her other symptoms have completely resolved. Her blood pressure was elevated in the emergency room. She reports that it was less than a year ago she had a similar episode of extreme hypertension which for which she came to the emergency room and was treated and released. When her coworker and friend had taken her blood pressure at work she appeared pale and she felt lightheaded as if she was going to pass out. She was diaphoretic. Patient reports that in February of this year she had a similar episode of right hand numbness associated with confusion and visual blurring this lasted for only 30 minutes at that time. She was admitted to the hospital for possible TIA. She had a CT of the brain which was negative. Review of Systems Eyes: denies blurred vision, denies pain Ears, nose, mouth and throat: Denies headache, Denies sore throat Cardiovascular: Denies chest pain, Denies shortness of breath Respiratory: Denies cough Gastrointestinal: Denies abdominal pain, Denies diarrhea, Denies nausea, Denies vomiting Musculoskeletal: Denies myalgias Neurological: Denies numbness, Denies weakness Psychiatric: Denies anxiety, Denies depression Past Medical History Past Medical History: No Reported History Additional Past Medical History / Comment(s): Viral Meningitis November 2016, treated [facility] History of Any Multi-Drug Resistant Organisms: None Reported Past Surgical History: Appendectomy, Section, Orthopedic Surgery Additional Past Surgical History / Comment(s): jaw replaced, cyst on neck removed, D&C, 2 orthopedic surgeries R foot Past Anesthesia/Blood Transfusion Reactions: No Reported Reaction Past Psychological History: No Psychological Hx Reported Additional Psychological History / Comment(s): . Lives in the family home with spouse and 2 children. 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 Patients child had a fever last week. no tobacco useand alcohol use or recre. No international travel. No experience. No animal exposures Smoking Status: Never smoker Past Alcohol Use History: Occasional Past Drug Use History: None Reported - Past Family History Father Family Medical History: CVA/TIA Mother Family Medical History: Cancer, Diabetes Mellitus Medications and Allergies Home Medications Medication Instructions Recorded Confirmed Type Cetirizine HCl [Children's Zyrtec 10 mg PO DAILY 04/22/17 04/22/17 History Chewable] Montelukast [Singulair] 10 mg PO HS 04/22/17 04/22/17 History Multivitamins, Thera [Multivitamin 1 tab PO DAILY 04/22/17 04/22/17 History (formulary)] Allergies Allergy/AdvReac Type Severity Reaction Status Date / Time antihistamines Allergy Unknown Uncoded 11/26/16 19:07 decongestants Allergy Unknown Uncoded 11/26/16 19:07 Physical Examination - Vital Signs Vital Signs: Vital Signs Temp Pulse Pulse Resp BP BP Pulse Ox 04/22/17 20:24 93 18 146/84 99 04/22/17 19:19 95 18 136/77 94 L 04/22/17 18:25 98.9 F 77 18 136/77 96 04/22/17 18:22 97.8 F 78 18 143/95 97 04/22/17 17:55 78 18 125/81 97 04/22/17 17:24 80 18 125/81 97 04/22/17 16:29 88 18 128/72 99 04/22/17 16:00 85 18 138/78 96 04/22/17 15:00 87 18 161/74 96 04/22/17 14:30 91 18 167/83 99 04/22/17 14:15 81 18 183/79 99 04/22/17 13:56 98.2 F 95 22 169/125 100 Intake and Output 04/22/17 04/22/17 04/22/17 06:59 14:59 22:59 Other: # Voids 0 Weight 87.09 kg 88.2 kg Patient Weight 04/23/17 06:59 Weight 88.2 kg - Constitutional General appearance: average body habitus - EENT EENT: PERRL, hearing intact, vision intact - Respiratory Respiratory: lungs clear - Cardiovascular Cardiovascular: regular rate, normal S1 Extremities: no peripheral edema bilaterally - Integumentary Integumentary: normal - Neurologic Mental status she was awake alert and oriented chance of questions appropriately there is no aphasia or dysarthria. Cranial nerve examination: PERRL, EOMI, VFF, V1/V2/V3 grossly intact, face symmetric, tongue midline Speech examination: intact Sensorimotor examination: intact Detailed motor examination: grossly full strength in all extremities Motor examination - right side: 5/5: biceps, triceps, wrist flexion, wrist extension, oven unloader, hip flexors, knee extensors, dorsiflexion, toe extension (EHL) , plantarflexion Motor examination - left side: 5/5: biceps, triceps, wrist flexion, wrist extension, oven unloader, hip flexors, knee extensors, dorsiflexion, toe extension (EHL) , plantarflexion Results - Laboratory Findings CBC and BMP: 04/22/17 14:20 04/22/17 14:20 Abnormal Lab Findings: Abnormal Labs 04/22/17 04/22/17 13:59 14:20 Glucose 112 H POC Glucose (mg/dL) 130 H Assessment and Plan (1) Transient cerebral ischemia Status: Acute Code(s): G45.9 - TRANSIENT CEREBRAL ISCHEMIC ATTACK, UNSPECIFIED (2) Accelerated hypertension Status: Acute Code(s): I10 - ESSENTIAL (PRIMARY) HYPERTENSION (3) Pre-syncope Status: Acute Code(s): R55 - SYNCOPE AND COLLAPSE (4) Occipital neuralgia Status: Acute Plan: The patient is 47-year-old woman who had episode of extreme hypertension associated with blurred vision , right hand and foot numbness and confusion. Entire episode lasted for about 2 hours and she had an associated headache which persisted. She does have some occipital notch tenderness. She had a CT of the brain which was negative. The patient had a presyncopal episode during the elevated blood pressure episode. He has a history of past similar episode less than a year ago of elevated blood pressure for which she came to the emergency room. she will have a carotid ultrasound and echocardiogram. We will also order an MRI of the brain. She has been started on aspirin.
[2017-04-23] MEDS: SODIUM CHLORIDE 0.9% 1,000 ML IV SCH (06:13)
[2017-04-23] MEDS: HYDROcodone/APAP 5-325MG 1 EACH TAB PO PRN (06:18)
[2017-04-23 06:49] LABS: Cholesterol 129 mg/dL (<200); HDL Cholesterol 27 mg/dL (40-60)
--- NOTE | 2017-04-23 07:07 | US ---
EXAMINATION TYPE: US carotid duplex BILAT DATE OF EXAM: 04/22/2017 COMPARISON: NONE CLINICAL HISTORY: Blurred vision, right side numbness . Dizziness. EXAM MEASUREMENTS: RIGHT: Peak Systolic Velocity (PSV) cm/sec ----- Right CCA: 90.0 ----- Right ICA: 68.2 ----- Right ECA: 97.3 ICA/CCA ratio: 0.8 RIGHT: End Diastole cm/sec ----- Right CCA: 26.0 ----- Right ICA: 26.0 ----- Right ECA: 20.2 LEFT: Peak Systolic Velocity (PSV) cm/sec ----- Left CCA: 88.5 ----- Left ICA: 122.0 ----- Left ECA: 123.9 ICA/CCA ratio: 1.4 LEFT: End Diastole cm/sec ----- Left CCA: 37.7 ----- Left ICA: 55.0 ----- Left ECA: 25.4 VERTEBRALS (direction of flow): Right Vertebral: Antegrade Left Vertebral: Antegrade Minimal plaque visualized bilaterally. Elevated EDV in the left mid/distal ICA. Grayscale images show no significant focal plaque at carotid bulb level bilaterally. Velocity measure ments are slightly higher on left side but not significantly elevated. IMPRESSION: No hemodynamic significant stenosis is seen in either internal carotid artery.
[2017-04-23 07:47] VITALS: RESP 17; TEMP 97.5
[2017-04-23] MEDS ORDERED: ASPIRIN 325 MG TAB PO SCH (09:00)
--- NOTE | 2017-04-23 11:13 | MR ---
EXAMINATION TYPE: MR brain wo con DATE OF EXAM: 04/23/2017 11:04 AM. COMPARISON: Previous CT scan dated 04/22/2017. HISTORY: TIA. Technique: Multiplanar, multiecho imaging of the brain was obtained without intravenous contrast. FINDINGS: Midline structures are unremarkable. There is a normal craniocervical junction. Echoplanar diffusion imaging shows no evidence of restricted diffusion. There are normal vascular flow voids. The orbits are normal. There is mild mucoperiosteal thickening involving the ethmoid sinuses. There is no evidence of a CP angle mass lesion. There are scattered high signal FLAIR lesions through out the deep white matter change and subcortical white matter of both cerebral hemispheres. The large st is in the centrum semiovale on the right anteriorly and measures 5.7 mm. There are approximately 1 0 of these in number. There is no mass effect, midline shift or intracranial blood. IMPRESSION: 1. NO ACUTE INTRACRANIAL ABNORMALITY. 2. SCATTERED HIGH SIGNAL FLAIR LESIONS THROUGHOUT THE DEEP WHITE MATTER TRACTS AND SUBCORTICAL WHITE MATTER OF THE CEREBRAL HEMISPHERES BILATERALLY. THESE ARE NONSPECIFIC. DIFFERENTIAL DIAGNOSIS INCLUDE S DEMYELINATION, HYPERTENSION, MIGRAINE HEADACHES, SMALL VESSEL DISEASE AND LYME'S DISEASE.
--- NOTE | 2017-04-23 11:48 | ECHOF ---
Referral Reason:Thrombus MEASUREMENTS -------- HEIGHT: 162.6 cm WEIGHT: 88.0 kg BP: 128/73 RVIDd: 3.1 cm (< 3.3) IVSd: 1.2 cm (0.6 - 1.1) LVIDd: 4.5 cm (3.9 - 5.3) LVPWd: 1.2 cm (0.6 - 1.1) IVSs: 1.6 cm LVIDs: 3.0 cm LVPWs: 1.5 cm LA Diam: 3.5 cm (2.7 - 3.8) LAESV Index (A-L): 37.10 ml/m Ao Diam: 3.1 cm (2.0 - 3.7) AV Cusp: 2.2 cm (1.5 - 2.6) MV EXCURSION: 22.777 mm (> 18.000) MV EF SLOPE: 150 mm/s (70 - 150) EPSS: 0.1 cm MV E Devendra: 1.06 m/s MV DecT: 153 ms MV A Devendra: 0.81 m/s MV E/A Ratio: 1.31 FINDINGS -------- Sinus rhythm. This was a technically good study. The left ventricular size is normal. There is borderline concentric left ventricular hypertrophy. Overall left ventricular systolic function is normal with, an EF between 60 - 65 %. The right ventricle is normal in size. LA is moderately dilated 34-39 ml/m2 The right atrium is normal in size. The aortic valve is trileaflet and appears structurally normal. The mitral valve is normal. The tricuspid valve appears structurally normal. There is no pulmonic regurgitation present. The aortic root size is normal. Normal inferior vena cava with normal inspiratory collapse consistent with estimated right atrial pressure of 5 mmHg. There is no pericardial effusion. CONCLUSIONS -------- 1. Sinus rhythm. 2. The mitral valve is normal. 3. The tricuspid valve appears structurally normal. 4. There is no pulmonic regurgitation present. 5. The aortic root size is normal. 6. Normal inferior vena cava with normal inspiratory collapse consistent with estimated right atrial pressure of 5 mmHg. 7. There is no pericardial effusion. 8. This was a technically good study. 9. The left ventricular size is normal. 10. There is borderline concentric left ventricular hypertrophy. 11. Overall left ventricular systolic function is normal with, an EF between 60 - 65 %. 12. The right ventricle is normal in size. 13. LA is moderately dilated 34-39 ml/m2 14. The right atrium is normal in size. 15. The aortic valve is trileaflet and appears structurally normal. MONONITROTOLUENE OPERATOR: Ana Pollack RDCS
[2017-04-23 11:59] VITALS: BP 136/80; PULSE 73
--- NOTE | 2017-04-23 12:03 | P.HPIM ---
History of Present Illness The patient is a 47-year-old right-handed white female who reports that she was at work around 1150 in the morning and she developed right eyes blurry vision and she couldn't see the computer screen very well. Her friend had coworker had taken her blood pressure at work and it was extremely high. EMS was called and she was brought to the hospital. The entire episode lasted for about 2 hours. She did develop a headache during this. Headache was in the occiput. She continues to have a headache. Her other symptoms have completely resolved. Her blood pressure was elevated in the emergency room. She reports that it was less than a year ago she had a similar episode of extreme hypertension which for which she came to the emergency room and was treated and released. When her coworker and friend had taken her blood pressure at work she appeared pale and she felt lightheaded as if she was going to pass out. Patient blood pressure is within normal notes now, patient underwent workup for TIA. Patient carotid Doppler and echo cardiac murmur essentially within normal limits and patient and MRI of the brain which showed some nonspecific white matter changes in the deep cortical tracts. We discussed these findings with the neurologist with neurologist. Patient was discharged on aspirin and a statin if agreeable with neurology. Patient's other neurological symptoms completely resolved at this time. Had extensive discussion with the family regarding TIA and management and lifestyle modifications. Review of Systems REVIEW OF SYSTEMS: CONSTITUTIONAL: No fever, no malaise, no fatigue. HEENT: No recent visual problems or hearing problems. Denied any sore throat. CARDIOVASCULAR: No chest pain, orthopnea, PND, no palpitations, no syncope. PULMONARY: No shortness of breath, no cough, no hemoptysis. GASTROINTESTINAL: No diarrhea, no nausea, no vomiting, no abdominal pain. Normoactive bowel sounds. NEUROLOGICAL: As mentioned in HPI HEMATOLOGICAL: Denies any bleeding or petechiae. GENITOURINARY: Denies any burning micturition, frequency, or urgency. MUSCULOSKELETAL/RHEUMATOLOGICAL: Denies any joint pain, swelling, or any muscle pain. ENDOCRINE: Denies any polyuria or polydipsia. The rest of the 14-point review of systems is negative. Past Medical History Past Medical History: No Reported History Additional Past Medical History / Comment(s): Viral Meningitis November 2016, treated [facility] History of Any Multi-Drug Resistant Organisms: None Reported Past Surgical History: Appendectomy, Section, Orthopedic Surgery Additional Past Surgical History / Comment(s): jaw replaced, cyst on neck removed, D&C, 2 orthopedic surgeries R foot Past Anesthesia/Blood Transfusion Reactions: No Reported Reaction Past Psychological History: No Psychological Hx Reported Additional Psychological History / Comment(s): . Lives in the family home with spouse and 2 children. 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 Patients child had a fever last week. no tobacco useand alcohol use or recre. No international travel. No experience. No animal exposures Smoking Status: Never smoker Past Alcohol Use History: Occasional Past Drug Use History: None Reported - Past Family History Father Family Medical History: CVA/TIA Mother Family Medical History: Cancer, Diabetes Mellitus Medications and Allergies Home Medications Medication Instructions Recorded Confirmed Type Cetirizine HCl [Children's Zyrtec 10 mg PO DAILY 04/22/17 04/22/17 History Chewable] Montelukast [Singulair] 10 mg PO HS 04/22/17 04/22/17 History Multivitamins, Thera [Multivitamin 1 tab PO DAILY 04/22/17 04/22/17 History (formulary)] Allergies Allergy/AdvReac Type Severity Reaction Status Date / Time antihistamines Allergy Unknown Uncoded 11/26/16 19:07 decongestants Allergy Unknown Uncoded 11/26/16 19:07 Physical Exam Vitals: Vital Signs Temp Pulse Pulse Resp BP BP Pulse Ox 04/23/17 07:45 97.5 F L 74 17 119/79 98 04/23/17 07:43 18 04/23/17 07:21 98 04/23/17 04:00 97.2 F L 74 18 128/73 98 04/23/17 00:00 97.0 F L 73 18 139/80 97 04/22/17 20:24 93 18 146/84 99 04/22/17 19:19 95 18 136/77 94 L 04/22/17 18:25 98.9 F 77 18 136/77 96 04/22/17 18:22 97.8 F 78 18 143/95 97 04/22/17 17:55 78 18 125/81 97 04/22/17 17:24 80 18 125/81 97 04/22/17 16:29 88 18 128/72 99 04/22/17 16:00 85 18 138/78 96 04/22/17 15:00 87 18 161/74 96 04/22/17 14:30 91 18 167/83 99 04/22/17 14:15 81 18 183/79 99 04/22/17 13:56 98.2 F 95 22 169/125 100 Intake and Output 04/22/17 04/23/17 04/23/17 22:59 06:59 14:59 Intake Total 200 418 Output Total 0 Balance 200 418 Intake: IV 200 300 Sodium Chloride 0.9% 1, 200 300 000 ml @ 100 mls/hr IV . Q10H OZIEL Rx#:[id number] Oral 118 Output: Urine 0 Other: Voiding Method Toilet Toilet # Voids 0 0 Weight 88.2 kg PHYSICAL EXAMINATION: GENERAL: The patient is alert and oriented x3, not in any acute distress. Well developed, well nourished. HEENT: Pupils are round and equally reacting to light. EOMI. No scleral icterus. No conjunctival pallor. Normocephalic, atraumatic. No pharyngeal erythema. No thyromegaly. CARDIOVASCULAR: S1 and S2 present. No murmurs, rubs, or gallops. PULMONARY: Chest is clear to auscultation, no wheezing or crackles. ABDOMEN: Soft, nontender, nondistended, normoactive bowel sounds. No palpable organomegaly. MUSCULOSKELETAL: No joint swelling or deformity. EXTREMITIES: No cyanosis, clubbing, or pedal edema. NEUROLOGICAL: Gross neurological examination did not reveal any focal deficits. SKIN: No rashes. Results CBC & Chem 7: 04/22/17 14:20 04/22/17 14:20 Labs: Abnormal Lab Results - Last 24 Hours (Table) 04/22/17 04/22/17 04/23/17 Range/Units 13:59 14:20 05:45 Glucose 112 H (74-99) mg/dL POC Glucose (mg/dL) 130 H (75-99) mg/dL Triglycerides 204 H (<150) mg/dL HDL Cholesterol 27 L (40-60) mg/dL Thrombosis Risk Factor Assmnt - Choose All That Apply Any of the Below Risk Factors Present?: Yes Each Factor Represents 1 point: Age 41-60 years, Obesity (BMI >25) Thrombosis Risk Factor Assessment Total Risk Factor Score: 2 Thrombosis Risk Factor Assessment Level: Low Risk Assessment and Plan Plan: #1 possible transient ischemic attack: Involving the left cerebral hemisphere and right side of the body. Symptoms completely resolved patient will be discharged on antiplatelet therapy and a statin her LDL is essentially within normal limits. Patient underwent workup as mentioned above for stroke. #2 elevated blood pressures: Patient appeared to have elevated blood pressures in response to TIA, patient is not hypertensive outpatient blood pressures are essentially within normal notes now will not require any antihypertensive medications upon discharge.
--- NOTE | 2017-04-23 12:05 | P.DS ---
Providers Date of admission: 04/22/17 16:34 Attending physician: Serena Joe Consults: 04/22/17 16:35 Consult Physician Routine Consulting Provider: Jovany Díaz Consult Reason/Comments: tia Do you want consulting provider notified?: Yes Primary care physician: Jaime Chun [facility] Course: Please refer to my HPI Patient Condition at Discharge: Fair Plan - Discharge Summary New Discharge Prescriptions: New Aspirin 325 mg PO DAILY #30 tab Atorvastatin Calcium [Lipitor] 20 mg PO HS #30 tab No Action Multivitamins, Thera [Multivitamin (formulary)] 1 tab PO DAILY Montelukast [Singulair] 10 mg PO HS Cetirizine HCl [Children's Zyrtec Chewable] 10 mg PO DAILY Discharge Medication List Cetirizine HCl [Children's Zyrtec Chewable] 10 mg PO DAILY 04/22/17 [History] Montelukast [Singulair] 10 mg PO HS 04/22/17 [History] Multivitamins, Thera [Multivitamin (formulary)] 1 tab PO DAILY 04/22/17 [History ] Aspirin 325 mg PO DAILY #30 tab 04/23/17 [Rx] Atorvastatin Calcium [Lipitor] 20 mg PO HS #30 tab 04/23/17 [Rx] Follow up Appointment(s)/Referral(s): Jaime Chun MD [Primary Care Provider] - 3 Days Discharge Disposition: HOME SELF-CARE
--- NOTE | 2017-05-25 09:03 | CDI ---
Carine Kumar, Can you provide me with clarification on the final discharge diagnosis please? There seems to be conflicting information between the consult physician and your final impression. As you know we can not code possible dx as an out patient. Appreciated your help! Bindu Hopson, MELO Nila, this is DR Snow's. Thanks, Heath LYN
--- NOTE | 2017-05-27 13:38 | CDI ---
DOCUMENTATION CLARIFICATION QUERY Dear Dr Gauthier, In order to capture accurate diagnosis for billing of this account, please clarify the following via addendum to discharge summery. Your discharge summery diagnosis states "possible TIA" Poultry Service Technician dignosis states "TIA" Please clarify if the patient did have a TIA or is only possible and not confirmed. Thank you for your time. Bindu Hopson CCS For questionS or concerns please contact my coding assistant, Sylvia Deutsch at [phone] I cannot confirm TIA MTDD
== END 2017-04-23 13:31 | disposition home or self-care (01) ==
LOC: EC 13:52 → 6SEL 16:34
PROVIDERS: ADMIT Hospitalist; ATTEND Hospitalist
DX: R53.1 Weakness (principal); R20.2 Paresthesia of skin; R20.0 Anesthesia of skin; H53.8 Other visual disturbances; R03.0 Elevated blood-pressure reading, without diagnosis of hypertension; R61 Generalized hyperhidrosis; R41.0 Disorientation, unspecified; R51 Headache; R55 Syncope and collapse; R42 Dizziness and giddiness; Z82.3 Family history of stroke; Z79.899 Other long term (current) drug therapy; Z88.8 Allergy status to other drugs, medicaments and biological substances; M54.81 Occipital neuralgia; E66.9 Obesity, unspecified; Z68.25 Body mass index [BMI] 25.0-25.9, adult; Z86.61 Personal history of infections of the central nervous system; Z87.891 Personal history of nicotine dependence
CPT/HCPCS: 99285; 96374; 96361 ×2; 36415; 94760; 93005; 93306; 92610; 92523; 80061; 80053; 82550; 82553; 83735; 84100; 84484; 85025; 85610; 85730; 81003; 93880; 70450; 70551; G0378 ×2; J2270

== ENCOUNTER → 2018-03-10 | Outpatient (CLI) | payer BC ==
--- NOTE | 2018-03-12 10:40 | MM ---
Reason for exam: screening (asymptomatic). Last mammogram was performed 1 year and 6 months ago. Physical Findings: A clinical breast exam by your physician is recommended on an annual basis and results should be correlated with mammographic findings. MG Screening Mammo w CAD Bilateral CC and MLO view(s) were taken. Prior study comparison: August 28, 2016, bilateral MG screening mammo w CAD. July 24, 2014, right breast MG diagnostic mammo RT w CAD. The breast tissue is heterogeneously dense. This may lower the sensitivity of mammography. No suspicious abnormality. No significant changes when compared with prior studies. ASSESSMENT: Negative, BI-RAD 1 RECOMMENDATION: Routine screening mammogram of both breasts in 1 year.
== END | disposition home or self-care (01) ==
LOC: RADMAMWWP 16:21
PROVIDERS: ATTEND Obstetrics & Gynecology
DX: Z12.31 Encounter for screening mammogram for malignant neoplasm of breast (principal)
CPT/HCPCS: 77067

== ENCOUNTER → 2019-07-04 | Outpatient (CLI) | payer BC ==
--- NOTE | 2019-07-05 13:53 | MM ---
Reason for exam: clinical finding. Last mammogram was performed 1 year and 4 months ago. Physical Findings: Nurse Summary: 2cm nodule in th right breast at 10 o'clock (nurse sasha). MG 3D Diag Mammo W/Cad EDWINA Bilateral CC and MLO view(s) were taken. Prior study comparison: March 10, 2018, bilateral MG screening mammo w CAD. August 28, 2016, bilateral MG screening mammo w CAD. The breast tissue is heterogeneously dense. This may lower the sensitivity of mammography. Two right upper outer quadrant round circumscribed middle depth masses correspond to cysts. Upper outer quadrant bilateral focal asymmetries appear similar back to 2013. These results were verbally communicated with the patient and result sheet given to the patient on 07/04/19. ASSESSMENT: Benign, BI-RAD 2 RECOMMENDATION: Routine screening mammogram of both breasts in 1 year.
--- NOTE | 2019-07-05 13:56 | USB ---
Reason for exam: clinical finding. US Breast RT Right complete breast ultrasound includes all four quadrants, the retroareolar region and axilla. Finding demonstrates a 0.5 x 0.3 x 0.3cm oval, cystic cluster at 10 o'clock on the prior on 07/24/14 measured 0.5 x 0.3 x 0.5cm, a 0.7 x 0.4 x 0.4cm oval, complex, cystic lesion at 10 o'clock 2cm from nipple and a 0.5 x 0.4 x 0.2cm oval, cystic lesion at 10 o'clock BB, cyst within dense tissue, dense tissue likely corresponds to the palpable. These results were verbally communicated with the patient and result sheet given to the patient on 07/04/19. ASSESSMENT: Benign, BI-RAD 2 RECOMMENDATION: Routine screening mammogram of both breasts in 1 year.
== END | disposition home or self-care (01) ==
LOC: RADMAMWWP 07:50
PROVIDERS: ATTEND Obstetrics & Gynecology
DX: N63.10 Unspecified lump in the right breast, unspecified quadrant (principal)
CPT/HCPCS: 77062; 77066

== ENCOUNTER 2019-08-08 17:14 | Emergency (ER) | payer BC ==
[2019-08-08 17:31] VITALS: RESP 18; TEMP 97.9
[2019-08-08] MEDS ORDERED: SODIUM CHLORIDE 0.9% 1,000 ML IV STA (17:48)
[2019-08-08] MEDS ORDERED: MORPHINE SULFATE 4 MG/ML SYRINGE IV STA (17:48)
--- NOTE | 2019-08-08 17:57 | ED ---
General Adult HPI - General Chief complaint: Abdominal Pain Stated complaint: abd pain Time Seen by Provider: 08/08/19 17:32 Source: patient, RN notes reviewed, old records reviewed Mode of arrival: wheelchair Limitations: no limitations - History of Present Illness Initial comments: 49-year-old female patient is ED chief complaint of suprapubic abdominal pain. Patient reports this has been ongoing for approximately a week. Patient describes it as a cramping pain. Patient reports that there is a small amount of pain radiating to her left lower quadrant region. Patient reports that for the previous 6 days she did have this suprapubic pain take one or 2 ibuprofen and pain resolved. Patient reports that the pain has been constant today. Has nausea vomiting or diarrhea. Denies any other complaints. Systemic: Pt denies fatigue, fever/chills, rash. Pt denies weakness, night sweats, weight loss. Neuro: Pt denies headache, visual disturbances, syncope or pre-syncope. HEENT: Pt denies ocular discharge or irritation, otalgia, rhinorrhea, phary ngitis or notable lymphadenopathy. Cardiopulmonary: Pt denies chest pain, SOB, heart palpitations, dyspnea on exertion. Abdominal/GI: Pt denies n/v/d. : Pt denies dysuria, burning w/ urination, frequency/urgency. Denies new onset urinary or bowel incontinence. MSK: Pt denies myalgia, loss of strength or function in extremities. Neuro: Pt denies new onset weakness, paresthesias. - Related Data Home Medications Medication Instructions Recorded Confirmed Cetirizine HCl [Children's Zyrtec 10 mg PO DAILY 04/22/17 04/22/17 Chewable] Montelukast [Singulair] 10 mg PO HS 04/22/17 04/22/17 Multivitamins, Thera [Multivitamin 1 tab PO DAILY 04/22/17 04/22/17 (formulary)] Previous Rx's Medication Instructions Recorded Aspirin 325 mg PO DAILY #30 tab 04/23/17 Atorvastatin Calcium [Lipitor] 20 mg PO HS #30 tab 04/23/17 Allergies Allergy/AdvReac Type Severity Reaction Status Date / Time antihistamines Allergy Unknown Uncoded 11/26/16 19:07 decongestants Allergy Unknown Uncoded 11/26/16 19:07 Review of Systems ROS Statement: Those systems with pertinent positive or pertinent negative responses have been documented in the HPI. ROS Other: All systems not noted in ROS Statement are negative. Past Medical History Past Medical History: No Reported History Additional Past Medical History / Comment(s): Viral Meningitis November 2016, treated [facility] History of Any Multi-Drug Resistant Organisms: None Reported Past Surgical History: Appendectomy, Section, Orthopedic Surgery, Uterine Ablation Additional Past Surgical History / Comment(s): jaw replaced, cyst on neck removed, D&C, 2 orthopedic surgeries R foot Past Anesthesia/Blood Transfusion Reactions: No Reported Reaction Past Psychological History: No Psychological Hx Reported Smoking Status: Former smoker Past Alcohol Use History: Occasional Past Drug Use History: None Reported - Past Family History Father Family Medical History: CVA/TIA Mother Family Medical History: Cancer, Diabetes Mellitus General Exam - General Exam Comments Initial Comments: Constitutional: NAD, AOX3, Pt has pleasant affect. HEENT: NC/AT, trachea midline, neck supple, no lymphadenopathy. Posterior pharynx non erythematous, without exudates. External ears appear normal, without discharge. Mucous membranes moist. Eyes PERRLA, EOM intact. There is no scleral icterus. No pallor noted. Cardiopulmonary: RRR, no murmurs, rubs or gallops, no JVD noted. Lungs CTAB in anterior and posterior blake. No peripheral edema. Abdominal exam: Abdomen soft and non-distended. Abdomen moderately tender to palpation in suprapubic region, no other areas of abdominal tenderness. Bowel sounds active in LLQ. No hepatosplenomegaly. No ecchymosis Neuro: CN II-XII grossly intact. No nuchal rigidity. No raccon eyes, no vazquez sign, no hemotympanum. No cervical spinal tenderness. MSK: No posterior calf tenderness bilaterally, homans sign negative bilaterally. Posterior tibialis and radial pulse +2 bilaterally. Sensation intact in upper and lower extremities. Full active ROM in upper and lower extremities, 5/5 stregnth. Limitations: no limitations Course Vital Signs 08/08/19 08/08/19 08/08/19 17:28 18:09 19:46 Temperature 97.9 F Pulse Rate 103 H 94 78 Respiratory 18 18 18 Rate Blood Pressure 208/111 185/105 154/94 O2 Sat by Pulse 98 98 98 Oximetry Medical Decision Making - Medical Decision Making 49-year-old female patient with CVG complaints of abdominal pain. Describes as cramping in nature. Patient vital signs initially displayed hypertension who patient was administered antihypertensive. Patient is also had an control pain at this time. Physical exam displayed superior tenderness. Laboratory investigations were noncompressive. Urine was negative. CT angiography of the aorta was performed. This displayed a probable 50% stenosis of the proximal right external iliac artery, however no other pathology is identified. Physical exam was offered and recommended the patient, she declined. Patient declined a dysuria or any new discharge. Patient was discharged in the ED, patient was discharged with close primary care follow-up as well as GI and vascular surgery. Case discussed with Dr. Fernandez. - Lab Data Result diagrams: 08/08/19 18:05 08/08/19 18:05 Lab Results 08/08/19 08/08/19 08/08/19 Range/Units 18:05 18:05 18:05 WBC 8.8 (3.8-10.6) k/uL RBC 4.78 (3.80-5.40) m/uL Hgb 14.0 (11.4-16.0) gm/dL Hct 39.5 (34.0-46.0) % MCV 82.6 (80.0-100.0) fL MCH 29.4 (25.0-35.0) pg MCHC 35.6 (31.0-37.0) g/dL RDW 12.5 (11.5-15.5) % Plt Count 262 (150-450) k/uL Neutrophils % 71 % Lymphocytes % 18 % Monocytes % 4 % Eosinophils % 3 % Basophils % 1 % Neutrophils # 6.3 (1.3-7.7) k/uL Lymphocytes # 1.6 (1.0-4.8) k/uL Monocytes # 0.4 (0-1.0) k/uL Eosinophils # 0.3 (0-0.7) k/uL Basophils # 0.1 (0-0.2) k/uL Sodium 141 (137-145) mmol/L Potassium 4.2 (3.5-5.1) mmol/L Chloride 109 H (98-107) mmol/L Carbon Dioxide 24 (22-30) mmol/L Anion Gap 8 mmol/L BUN 11 (7-17) mg/dL Creatinine 0.60 (0.52-1.04) mg/dL Est GFR (CKD-EPI)AfAm >90 (>60 ml/min/1.73 sqM) Est GFR (CKD-EPI)NonAf >90 (>60 ml/min/1.73 sqM) Glucose 104 H (74-99) mg/dL Plasma Lactic Acid Nadir (0.7-2.0) mmol/L Calcium 9.6 (8.4-10.2) mg/dL Total Bilirubin 0.3 (0.2-1.3) mg/dL AST 29 (14-36) U/L ALT 30 (9-52) U/L Alkaline Phosphatase 109 (38-126) U/L Troponin I (0.000-0.034) ng/mL Total Protein 7.6 (6.3-8.2) g/dL Albumin 4.4 (3.5-5.0) g/dL Amylase 58 (30-110) U/L Lipase 84 (23-300) U/L Urine Color Urine Appearance (Clear) Urine pH (5.0-8.0) Ur Specific [place] (1.001-1.035) Urine Protein (Negative) Urine Glucose (UA) (Negative) Urine Ketones (Negative) Urine Blood (Negative) Urine Nitrite (Negative) Urine Bilirubin (Negative) Urine Urobilinogen (<2.0) mg/dL Ur Leukocyte Esterase (Negative) Urine HCG, Qual Not Detected (Not Detectd) 08/08/19 08/08/19 08/08/19 Range/Units 18:05 18:05 18:06 WBC (3.8-10.6) k/uL RBC (3.80-5.40) m/uL Hgb (11.4-16.0) gm/dL Hct (34.0-46.0) % MCV (80.0-100.0) fL MCH (25.0-35.0) pg MCHC (31.0-37.0) g/dL RDW (11.5-15.5) % Plt Count (150-450) k/uL Neutrophils % % Lymphocytes % % Monocytes % % Eosinophils % % Basophils % % Neutrophils # (1.3-7.7) k/uL Lymphocytes # (1.0-4.8) k/uL Monocytes # (0-1.0) k/uL Eosinophils # (0-0.7) k/uL Basophils # (0-0.2) k/uL Sodium (137-145) mmol/L Potassium (3.5-5.1) mmol/L Chloride (98-107) mmol/L Carbon Dioxide (22-30) mmol/L Anion Gap mmol/L BUN (7-17) mg/dL Creatinine (0.52-1.04) mg/dL Est GFR (CKD-EPI)AfAm (>60 ml/min/1.73 sqM) Est GFR (CKD-EPI)NonAf (>60 ml/min/1.73 sqM) Glucose (74-99) mg/dL Plasma Lactic Acid Nadir 1.4 (0.7-2.0) mmol/L Calcium (8.4-10.2) mg/dL Total Bilirubin (0.2-1.3) mg/dL AST (14-36) U/L ALT (9-52) U/L Alkaline Phosphatase (38-126) U/L Troponin I <0.012 (0.000-0.034) ng/mL Total Protein (6.3-8.2) g/dL Albumin (3.5-5.0) g/dL Amylase (30-110) U/L Lipase (23-300) U/L Urine Color Colorless Urine Appearance Clear (Clear) Urine pH 6.5 (5.0-8.0) Ur Specific [place] 1.003 (1.001-1.035) Urine Protein Negative (Negative) Urine Glucose (UA) Negative (Negative) Urine Ketones Negative (Negative) Urine Blood Negative (Negative) Urine Nitrite Negative (Negative) Urine Bilirubin Negative (Negative) Urine Urobilinogen <2.0 (<2.0) mg/dL Ur Leukocyte Esterase Negative (Negative) Urine HCG, Qual (Not Detectd) - EKG Data -: EKG Interpreted by Me (and Dr. Fernandez ) EKG Comments: Ventricular rate 77, when necessary for 170, QRS 96, QT/QTC 390/441. Normal sinus rhythm, normal EKG, no concern for acute ischemia. Disposition Clinical Impression: Abdominal pain Disposition: HOME SELF-CARE Condition: Stable Instructions (If sedation given, give patient instructions): Abdominal Pain (ED) Additional Instructions: Follow-up with primary care provider tomorrowm have Blood pressure rechecked. Vascular surgery as well as GI referral also provided. Return to ER if condition worsens. Is patient prescribed a controlled substance at d/c from ED?: No Referrals: Jaime Chun MD [Primary Care Provider] - 1-2 days Roby Cheung MD [STAFF PHYSICIAN] - 1-2 days Traci Rodarte DO [STAFF PHYSICIAN] - 1-2 days
[2019-08-08] MEDS ORDERED: LABETALOL 5 MG/ML VIAL MDV IVP STA (18:08)
[2019-08-08 18:20] LABS: Basophils # (A) 0.1 k/uL (0-0.2); Basophils % (A) 1 %; Eosinophils # (A) 0.3 k/uL (0-0.7); Eosinophils % (A) 3 %; HCT 39.5 % (34.0-46.0); Lymphocytes # (A) 1.6 k/uL (1.0-4.8); Lymphocytes % (A) 18 %; MCH 29.4 pg (25.0-35.0); MCHC 35.6 g/dL (31.0-37.0); MCV 82.6 fL (80.0-100.0); Mean Platelet Volume 6.8; Monocytes # (A) 0.4 k/uL (0-1.0); Monocytes % (A) 4 %; Neutrophils # (A) 6.3 k/uL (1.3-7.7); Neutrophils % (A) 71 %; Platelet Count 262 k/uL (150-450); RBC 4.78 m/uL (3.80-5.40); RDW 12.5 % (11.5-15.5); WBC 8.8 k/uL (3.8-10.6)
[2019-08-08 18:24] LABS: Appearance,Urine Clear (Clear); Bilirubin,Urine Negative (Negative); Blood,Urine Negative (Negative); Color,Urine Colorless; Glucose,Urine (UA) Negative (Negative); Ketones,Urine Negative (Negative); Leukocyte Esterase,Urine Negative (Negative); Nitrite,Urine Negative (Negative); PH, Urine 6.5 (5.0-8.0); Protein,Urine Negative (Negative); Specific Gravity,Urine 1.003 (1.001-1.035); Urobilinogen,Urine <2.0 mg/dL (<2.0)
[2019-08-08] MEDS ORDERED: HYDROmorphone 0.5 MG/0.5 ML SYRINGE IVP STA (18:27)
[2019-08-08 18:30] LABS: ALT 30 U/L (9-52); AST 29 U/L (14-36); African American GFR (CKD) >90 (>60 ml/min/1.73 sqM); Albumin 4.4 g/dL (3.5-5.0); Alkaline Phosphatase 109 U/L (38-126); Amylase 58 U/L (30-110); Anion Gap 8 mmol/L; Blood Urea Nitrogen 11 mg/dL (7-17); Calcium 9.6 mg/dL (8.4-10.2); Carbon Dioxide 24 mmol/L (22-30); Chloride 109 mmol/L (98-107); Glucose 104 mg/dL (74-99); Potassium 4.2 mmol/L (3.5-5.1); Sodium 141 mmol/L (137-145); Total Bilirubin 0.3 mg/dL (0.2-1.3); Total Protein 7.6 g/dL (6.3-8.2)
--- NOTE | 2019-08-08 19:59 | CT ---
EXAMINATION TYPE: CT angio thor/abd pel aorta DATE OF EXAM: 08/08/2019 COMPARISON: None HISTORY: Lower abdominal cramping, pain. CT DLP: 1893 mGycm. Automated Exposure Control for Dose Reduction was Utilized. CONTRAST: CT scan of the thorax, abdomen and pelvis is performed with IV Contrast, patient injected with 100 mL of Isovue 370. There are 3-D post processed images. Exam performed with and without IV contrast. FINDINGS: Lungs are clear of infiltrate. There is no pleural effusion. Heart size is normal. Mediastinum is nor mal. There is no thoracic aortic aneurysm or dissection. There are no hilar masses. There is no peric ardial effusion. Liver spleen pancreas gallbladder appear normal. Bile ducts are not dilated. There is no adrenal mass. Kidneys show satisfactory contrast opacification. There is no hydronephrosi s. Ureters are not dilated. Bladder distends smoothly. Uterus is anteverted. There is no free fluid i n the pelvis. There is no sign of a pelvic mass. Thoracic and lumbar spine appear intact. There is na rrowing of L5-S1 disc space. There is no mesenteric edema. There is no ascites or free air. Appendix not seen. There is an apparen t clips from appendectomy. There is broad-based mild umbilical hernia that contains fat. Thoracic and abdominal aorta have normal size and contour. There is no aneurysm or dissection. There is patency of the celiac artery and superior mesenteric artery. There is bilateral arterial flow in t he renal arteries. There is arterial flow in the iliac and femoral arteries. There is an apparent 1.5 cm segment of decreased diameter of the proximal right external iliac artery. There is probably 50% narrowing. IMPRESSION: No evidence of aortic aneurysm or dissection. 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
[2019-08-08] MEDS ORDERED: SODIUM CHLORIDE 0.9% 500 ML 500 ML IV STA (20:39)
[2019-08-08 21:20] VITALS: BP 156/91; PULSE 88
--- NOTE | 2019-08-08 21:24 | ED ---
Medical Decision Making - Medical Decision Making Patient declined initiation of antihypertensive upon discharge. - Lab Data Result diagrams: 08/08/19 18:05 08/08/19 18:05 Lab Results 08/08/19 08/08/19 08/08/19 Range/Units 18:05 18:05 18:05 WBC 8.8 (3.8-10.6) k/uL RBC 4.78 (3.80-5.40) m/uL Hgb 14.0 (11.4-16.0) gm/dL Hct 39.5 (34.0-46.0) % MCV 82.6 (80.0-100.0) fL MCH 29.4 (25.0-35.0) pg MCHC 35.6 (31.0-37.0) g/dL RDW 12.5 (11.5-15.5) % Plt Count 262 (150-450) k/uL Neutrophils % 71 % Lymphocytes % 18 % Monocytes % 4 % Eosinophils % 3 % Basophils % 1 % Neutrophils # 6.3 (1.3-7.7) k/uL Lymphocytes # 1.6 (1.0-4.8) k/uL Monocytes # 0.4 (0-1.0) k/uL Eosinophils # 0.3 (0-0.7) k/uL Basophils # 0.1 (0-0.2) k/uL Sodium 141 (137-145) mmol/L Potassium 4.2 (3.5-5.1) mmol/L Chloride 109 H (98-107) mmol/L Carbon Dioxide 24 (22-30) mmol/L Anion Gap 8 mmol/L BUN 11 (7-17) mg/dL Creatinine 0.60 (0.52-1.04) mg/dL Est GFR (CKD-EPI)AfAm >90 (>60 ml/min/1.73 sqM) Est GFR (CKD-EPI)NonAf >90 (>60 ml/min/1.73 sqM) Glucose 104 H (74-99) mg/dL Plasma Lactic Acid Nadir (0.7-2.0) mmol/L Calcium 9.6 (8.4-10.2) mg/dL Total Bilirubin 0.3 (0.2-1.3) mg/dL AST 29 (14-36) U/L ALT 30 (9-52) U/L Alkaline Phosphatase 109 (38-126) U/L Troponin I (0.000-0.034) ng/mL Total Protein 7.6 (6.3-8.2) g/dL Albumin 4.4 (3.5-5.0) g/dL Amylase 58 (30-110) U/L Lipase 84 (23-300) U/L Urine Color Urine Appearance (Clear) Urine pH (5.0-8.0) Ur Specific [place] (1.001-1.035) Urine Protein (Negative) Urine Glucose (UA) (Negative) Urine Ketones (Negative) Urine Blood (Negative) Urine Nitrite (Negative) Urine Bilirubin (Negative) Urine Urobilinogen (<2.0) mg/dL Ur Leukocyte Esterase (Negative) Urine HCG, Qual Not Detected (Not Detectd) 08/08/19 08/08/19 08/08/19 Range/Units 18:05 18:05 18:06 WBC (3.8-10.6) k/uL RBC (3.80-5.40) m/uL Hgb (11.4-16.0) gm/dL Hct (34.0-46.0) % MCV (80.0-100.0) fL MCH (25.0-35.0) pg MCHC (31.0-37.0) g/dL RDW (11.5-15.5) % Plt Count (150-450) k/uL Neutrophils % % Lymphocytes % % Monocytes % % Eosinophils % % Basophils % % Neutrophils # (1.3-7.7) k/uL Lymphocytes # (1.0-4.8) k/uL Monocytes # (0-1.0) k/uL Eosinophils # (0-0.7) k/uL Basophils # (0-0.2) k/uL Sodium (137-145) mmol/L Potassium (3.5-5.1) mmol/L Chloride (98-107) mmol/L Carbon Dioxide (22-30) mmol/L Anion Gap mmol/L BUN (7-17) mg/dL Creatinine (0.52-1.04) mg/dL Est GFR (CKD-EPI)AfAm (>60 ml/min/1.73 sqM) Est GFR (CKD-EPI)NonAf (>60 ml/min/1.73 sqM) Glucose (74-99) mg/dL Plasma Lactic Acid Nadir 1.4 (0.7-2.0) mmol/L Calcium (8.4-10.2) mg/dL Total Bilirubin (0.2-1.3) mg/dL AST (14-36) U/L ALT (9-52) U/L Alkaline Phosphatase (38-126) U/L Troponin I <0.012 (0.000-0.034) ng/mL Total Protein (6.3-8.2) g/dL Albumin (3.5-5.0) g/dL Amylase (30-110) U/L Lipase (23-300) U/L Urine Color Colorless Urine Appearance Clear (Clear) Urine pH 6.5 (5.0-8.0) Ur Specific [place] 1.003 (1.001-1.035) Urine Protein Negative (Negative) Urine Glucose (UA) Negative (Negative) Urine Ketones Negative (Negative) Urine Blood Negative (Negative) Urine Nitrite Negative (Negative) Urine Bilirubin Negative (Negative) Urine Urobilinogen <2.0 (<2.0) mg/dL Ur Leukocyte Esterase Negative (Negative) Urine HCG, Qual (Not Detectd) Disposition Clinical Impression: Abdominal pain Disposition: HOME SELF-CARE Condition: Stable Instructions (If sedation given, give patient instructions): Abdominal Pain (ED) Additional Instructions: Follow-up with primary care provider tomorrowm have Blood pressure rechecked. Vascular surgery as well as GI referral also provided. Return to ER if condition worsens. Is patient prescribed a controlled substance at d/c from ED?: No Referrals: Jaime Chun MD [Primary Care Provider] - 1-2 days Traci Rodarte DO [STAFF PHYSICIAN] - 1-2 days Roby Cheung MD [STAFF PHYSICIAN] - 1-2 days
== END 2019-08-08 21:40 | disposition home or self-care (01) ==
LOC: EC 17:14
DX: R10.2 Pelvic and perineal pain (principal); I10 Essential (primary) hypertension; Z87.891 Personal history of nicotine dependence; Z88.8 Allergy status to other drugs, medicaments and biological substances
CPT/HCPCS: 36415; 80053; 82150; 83605; 83690; 84484; 85025; 81003; 81025; 71275; 74174; 99285; 96374; 96375 ×2; 96361; J2270; J1170; Q9967

== ENCOUNTER → 2019-10-24 | Day surgery (SDC) | payer BC ==
[2019-10-19 13:56] VITALS: BMI 31.5
--- NOTE | 2019-10-23 18:26 | P.GSHP ---
History of Present Illness H&P Date: 10/24/19 CHIEF COMPLAINT: Cholecystitis HISTORY OF PRESENT ILLNESS: The patient is a 47-year-old female who presents with history of epigastric including right upper quadrant abdominal pain. He underwent diagnostic studies for the gallbladder. Separately his clinical picture was consistent with cholecystitis. Now he presents for surgical intervention. PAST MEDICAL HISTORY: Please see list PAST SURGICAL HISTORY: Please see list MEDICATIONS: Please see list ALLERGIES: Denies. SOCIAL HISTORY: No illicit drug use or recent tobacco use FAMILY HISTORY: Pertinent for gallbladder disease REVIEW OF ORGAN SYSTEMS: CONSTITUTIONAL: No reports of fevers or chills. HEENT: Denies any troubles with the vision or hearing. PHYSICAL EXAM: VITAL SIGNS: Afebrile vital signs stable GENERAL: Well-developed pleasant male in no acute distress. HEENT: No scleral icterus. Extraocular movements grossly intact. Moist buccal mucosa. NECK: Supple without lymphadenopathy. CHEST: Unlabored respirations. Equal bilateral excursions. CARDIOVASCULAR: Regular rate regular rhythm rhythm. Distal 2+ pulses. ABDOMEN: Soft, nondistended. Tender along the epigastrium and right upper quadrant. MUSCULOSKELETAL: No clubbing, cyanosis, or edema. NEURO : No focal or lateralizing signs. Cranial nerves II-12 within normal limits. PSYCH: Alert and oriented to person, place and time. SKIN: Well perfused. Good skin turgor. ASSESSMENT: 1. Epigastric and right upper quadrant abdominal pain 2. Chronic cholecystitis PLAN: 1. Will need a robotic cholecystectomy possible open. Benefits and risks were described. 2. Heparin for DVT prophylaxis 5000 units. 3. Antibiotic prophylaxis. Past Medical History Past Medical History: No Reported History Additional Past Medical History / Comment(s): Viral Meningitis November 2016, treated [facility] History of Any Multi-Drug Resistant Organisms: None Reported Past Surgical History: Appendectomy, Section, Orthopedic Surgery, Uterine Ablation Additional Past Surgical History / Comment(s): jaw replaced, cyst on neck removed, D&C, 2 orthopedic surgeries R foot Past Anesthesia/Blood Transfusion Reactions: No Reported Reaction Smoking Status: Former smoker - Past Family History Father Family Medical History: CVA/TIA Mother Family Medical History: Cancer, Diabetes Mellitus Medications and Allergies Home Medications Medication Instructions Recorded Confirmed Type No Known Home Medications 10/19/19 10/19/19 History Allergies Allergy/AdvReac Type Severity Reaction Status Date / Time antihistamines Allergy Unknown Uncoded 10/19/19 13:50 decongestants Allergy Unknown Uncoded 10/19/19 13:50
[~2019-10-24] MED LIST: ACETAMINOPHEN TAB 500 MG TAB PO ONE; ACETAMINOPHEN TAB 500 MG TAB PO STA; DEXAMETHASONE SOD PHOSPHATE 10 MG/ML 1 ML VIAL IV ONE; GLYCOPYRROLATE 0.2 MG/ML 2 ML VIAL ONE; HEPARIN SODIUM,PORCINE 5,000 UNIT/ML 1 ML VIAL SQ ONE; INDOCYANINE GREEN 25 MG VIAL IV ONE; KETOROLAC 30 MG/ML 1 ML VIAL ONE; LACTATED RINGERS 1,000 ML IV ONE; LACTATED RINGERS 1,000 ML IV SCH; LIDOCAINE 1% 20 ML VIAL (10MG/ML) FOR IV START INTRADERMA ONE; LIDOCAINE 1% INJ 10MG/ML (20 ML MDV) ONE; LIDOCAINE 1%-EPI 1:100,000 20 ML VIAL SQ ONE; MIDAZOLAM 2 MG/2 ML VIAL IV PRN; MIDAZOLAM 2 MG/2 ML VIAL ONE; NEOSTIGMINE 1 MG/ML 10 ML VIAL ONE; ONDANSETRON 4 MG/2 ML VIAL IVP ONE; PROPOFOL 10 MG/ML 20 ML VIAL IV ONE; ROCURONIUM BROMIDE 10 MG/ML 10 ML VIAL IV ONE; SCOPOLAMINE 1.5MG/72HR PATCH TRANSDERM ONE; SCOPOLAMINE 1.5MG/72HR PATCH TRANSDERM STA; SIMETHICONE 80 MG CHEWABLE PO ONE; SUCCINYLCHOLINE CHLORIDE 100 MG/5 ML SYR IV ONE; fentaNYL (PF) 50 MCG/ML 2 ML AMP ONE
[2019-10-24 15:20] LABS: HCT 42.2 % (34.0-46.0); HGB 14.2 gm/dL (11.4-16.0); MCH 27.5 pg (25.0-35.0); MCHC 33.7 g/dL (31.0-37.0); MCV 81.8 fL (80.0-100.0); Mean Platelet Volume 8.5; Platelet Count 253 k/uL (150-450); RBC 5.16 m/uL (3.80-5.40); RDW 12.4 % (11.5-15.5); WBC 7.9 k/uL (3.8-10.6)
[2019-10-24 18:57] VITALS: TEMP 98.7
--- NOTE | 2019-10-24 19:09 | P.OP ---
Date of Procedure: 10/24/19 Description of Procedure: SURGEON: STEPHANIE BORDEN MD PREOPERATIVE DIAGNOSES: 1. Chronic cholecystitis 2. Obesity due to excess calories, BMI 31.1 POSTOPERATIVE DIAGNOSES: 1. Chronic cholecystitis 2. Obesity due to excess calories, BMI 31.1 3. Hepatomegaly with fatty liver disease OPERATION: Robotic-assisted da Nitesh Xi laparoscopic cholecystectomy, multiport with FIREFLY ESTIMATED BLOOD LOSS: 5 mL. SPECIMENS REMOVED: Gallbladder. COMPLICATIONS: None. OPERATIVE FINDINGS: 1. Chronic cholecystitis 2. Console time 11 minutes INDICATIONS: The patient is a 49-year-old female who presents with cholelcystitis. Surgical intervention with a laparoscopic cholecystectomy was described at length including injury to the biliary tree, bleeding, infection, need for further surgery. Informed consent was obtained. Robotic assisted laparoscopic approach was described. Benefits and risks of the procedure including but not limited to bleeding, infection, injury to the biliary tree was described. Informed consent was obtained. DESCRIPTION OF PROCEDURE: Patient was brought to the operating room, placed in supine position. After general induction, the abdomen had been prepped and draped in standard sterile fashion. The robotic da Nitesh XI system was primed. After a timeout protocol was performed, the patient had been prepped and draped in standard sterile fashion. The patient was injected with indocyanine green. A 5 mm 0 degrees laparoscopic trocar entry was performed along the left upper quadrant. The abdomen insufflated to 15 mmHg pressure which was tolerated well. Diagnostic laparoscopy demonstrated no injury to bowel viscera or mesentery. The liver surface was unremarkable. Next, two 8 mm robotic ports were placed along the right upper abdomen. The camera 8-mm port was maintained along the epigastrium. Another 8 mm port was placed along the left upper abdominal wall after exchanging the 5 mm port. Please note that the ports were placed at least 10 to 15 cm away from the target anatomy of the gallbladder. The robot was docked along the left lateral abdomen. The patient was repositioned in reverse Trendelenburg position. Using a grasper for arm 3, a grasper for arm 4, including hook cautery for arm 1, the robotic system was docked and primed as described. Instruments were interchanged by the horticultural nursery assistant including hook cautery, Bovie cautery and clip appliers. I had sat at the console. The gallbladder fundus was retracted over the dome of the liver. Initial attention was brought to the infundibulum which was gently retracted in the inferior lateral approach. Using a grasper, the cystic duct including the cystic artery was carefully skeletonized. FIREFLY was used to identify the cystic artery and cystic structures. A critical view of safety was obtained. Large PLASTIC clips were used throughout the entire case. Using a clip heddler 2 clips were placed proximally, and 1 clip was placed between the infundibulum and cystic duct and divided using cautery. Next, the cystic artery was similarly clipped and cauterized. Electro-Bovie cautery was used to remove the gallbladder from the hepatic fossa. Hemostasis was checked and found to be adequate. The robot was undocked. I re-scrubbed into the case. Using a 10 mm Endo Catch bag via the left upper quadrant incision, the specimen was removed from the abdominal cavity. All pneumoperitoneum instruments were evacuated from the abdominal cavity. The incisions were reapproximated using 4-0 Monocryl in an interrupted subcuticular fashion. Fascial defects were less than 8 mm in size. Please note along the trocar sites, local anesthetic was placed as a field block prior to insertion of all instruments. Liquid glue was applied to the skin. At the end of the procedure needle, sponge, and instrument count had been verified correct by the surgical scrub tech. The patient was transferred to postanesthesia care unit in stable condition. Intraoperative films were shared with the patient's family who were very pleased with the level of care. Plan - Discharge Summary Discharge Rx Participant: No New Discharge Prescriptions: New Simethicone [Gas-X] 125 mg PO AC-TID PRN #20 capsule PRN Reason: Abdominal Distention Ibuprofen [Motrin] 600 mg PO Q8HR PRN #30 tab PRN Reason: Pain Acetaminophen Tab [Tylenol Tab] 1,000 mg PO Q6HR PRN #30 tablet Discharge Medication List Acetaminophen Tab [Tylenol Tab] 1,000 mg PO Q6HR PRN #30 tablet 10/24/19 [Rx] Ibuprofen [Motrin] 600 mg PO Q8HR PRN #30 tab 10/24/19 [Rx] Simethicone [Gas-X] 125 mg PO AC-TID PRN #20 capsule 10/24/19 [Rx] Follow up Appointment(s)/Referral(s): Stephanie Borden MD [STAFF PHYSICIAN] - 10/25/19 Patient Instructions/Handouts: *Surgery [facility] - Scopalamine Patch Instructions, Laparoscopic Cholecystectomy (DC) Activity/Diet/Wound Care/Special Instructions: No lifting over 10 pounds in 2 weeks until Nov 07. January shower. No bath tub soaks for two weeks until Nov 07 Diet as tolerated. No driving while on narcotics. Use Tylenol and ibuprofen or Aleve scheduled for the next 24-48 hours for best pain relief. Use ice along incisions for the today to prevent swelling. Discharge Disposition: HOME SELF-CARE
[2019-10-24] MEDS: HYDROmorphone 0.5 MG/0.5 ML SYRINGE IVP PRN ×2 (19:12→19:26)
[2019-10-24 20:54] VITALS: BP 123/81; PULSE 93; RESP 18
== END | disposition home or self-care (01) ==
LOC: OR 13:37
PROVIDERS: ATTEND Surgery Plastic and Reconstructive Surgery
DX: K81.1 Chronic cholecystitis (principal); K76.0 Fatty (change of) liver, not elsewhere classified; R16.0 Hepatomegaly, not elsewhere classified; E66.9 Obesity, unspecified; Z68.31 Body mass index [BMI] 31.0-31.9, adult; Z86.19 Personal history of other infectious and parasitic diseases; Z90.49 Acquired absence of other specified parts of digestive tract; Z98.51 Tubal ligation status; Z98.890 Other specified postprocedural states; Z87.891 Personal history of nicotine dependence; Z82.3 Family history of stroke; Z80.9 Family history of malignant neoplasm, unspecified; Z83.3 Family history of diabetes mellitus; Z88.8 Allergy status to other drugs, medicaments and biological substances
CPT/HCPCS: 47562; S2900; 81025; 85027; 88304

== ENCOUNTER → 2020-04-09 | Outpatient (CLI) | payer BC ==
--- NOTE | 2020-04-09 15:59 | US ---
EXAMINATION TYPE: US venous doppler duplex LE RT DATE OF EXAM: 04/09/2020 3:45 PM COMPARISON: NONE CLINICAL HISTORY: M79.604 PAIN IN RT LEG. SIDE PERFORMED: Right TECHNIQUE: The lower extremity deep venous system is examined utilizing real time linear array sonog pham with graded compression, doppler sonography and color-flow sonography. VESSELS IMAGED: External Iliac Vein (EIV) Common Femoral Vein Deep Femoral Vein Greater Saphenous Vein * Femoral Vein Popliteal Vein Small Saphenous Vein * Proximal Calf Veins (* superficial vessels) Right Leg: Negative for DVT IMPRESSION: No evidence for DVT at this time.
== END | disposition home or self-care (01) ==
LOC: RADUSWWP 15:16
PROVIDERS: ATTEND Family Medicine
DX: M79.604 Pain in right leg (principal)

== ENCOUNTER → 2020-10-15 | Outpatient (CLI) | payer BC ==
--- NOTE | 2020-10-16 14:43 | MM ---
Reason for exam: screening (asymptomatic). Last mammogram was performed 1 year and 3 months ago. History: Took hormonal contraceptives for 12 years. Physical Findings: A clinical breast exam by your physician is recommended on an annual basis and results should be correlated with mammographic findings. MG Screening Mammo w CAD Bilateral CC and MLO view(s) were taken. Prior study comparison: July 04, 2019, bilateral MG 3d diag mammo w/cad [facility]. March 10, 2018, bilateral MG screening mammo w CAD. The breast tissue is heterogeneously dense. This may lower the sensitivity of mammography. No significant changes when compared with prior studies. ASSESSMENT: Benign, BI-RAD 2 RECOMMENDATION: Routine screening mammogram of both breasts in 1 year.
== END | disposition home or self-care (01) ==
LOC: RADMAMWWP 07:36
PROVIDERS: ATTEND Family Medicine
DX: Z12.31 Encounter for screening mammogram for malignant neoplasm of breast (principal)
CPT/HCPCS: 77067

== ENCOUNTER 2021-05-07 13:47 | Emergency (ER) | payer BC ==
[2021-05-07 13:57] VITALS: RESP 18
[2021-05-07] MEDS ORDERED: MORPHINE SULFATE 2 MG/ML SYRINGE IVP STA (14:08)
[2021-05-07] MEDS ORDERED: SODIUM CHLORIDE 0.9% 1,000 ML IV ONE (14:08)
[2021-05-07] MEDS ORDERED: MAGNESIUM SULFATE-D5W PMX 1 GM in DEXTROSE/WATER 1 100ML.BAG IVPB ONE (14:08)
[2021-05-07] MEDS ORDERED: ACETAMINOPHEN TAB 500 MG TAB PO STA (14:08)
[2021-05-07] MEDS ORDERED: diphenhydrAMINE 50 MG/ML 1 ML VIAL IVP STA (14:09)
[2021-05-07] MEDS ORDERED: METOCLOPRAMIDE 5 MG/ML 2 ML VIAL IVP STA (14:09)
--- NOTE | 2021-05-07 14:24 | ED ---
General Adult HPI - General Source: patient, EMS, RN notes reviewed, old records reviewed Mode of arrival: EMS Limitations: no limitations <Power Zhou - Last Filed: 05/07/21 15:22> <Lindsey Levin - Last Filed: 05/07/21 16:04> - General Chief complaint: Headache Stated complaint: Headache Time Seen by Provider: 05/07/21 13:53 - History of Present Illness Initial comments: 51-year-old female with presented for evaluation of headache. Headache began yesterday about mid day. This was gradual onset. She does have history of migraine headache but this is not similar to her normal migraine headache. She does admit to being stressed at work. Headache is predominantly occipital in the upper neck. She reports some neck stiffness associated with this. There is no injury. Patient has been taking Motrin at home with minimal relief. No family history of cerebral aneurysm. This was not a thunderclap headache. She has remote history of viral meningitis. No vomiting. No abdominal pain. (Power Zhou) - Related Data Home Medications Medication Instructions Recorded Confirmed No Known Home Medications 05/07/21 05/07/21 Allergies Allergy/AdvReac Type Severity Reaction Status Date / Time antihistamines Allergy Unknown Uncoded 05/07/21 15:57 decongestants Allergy Unknown Uncoded 05/07/21 15:57 Review of Systems ROS Other: All systems not noted in ROS Statement are negative. <Power Zhou - Last Filed: 05/07/21 15:22> ROS Other: All systems not noted in ROS Statement are negative. <Lindsey Levin - Last Filed: 05/07/21 16:04> ROS Statement: Those systems with pertinent positive or pertinent negative responses have been documented in the HPI. Past Medical History Past Medical History: No Reported History Additional Past Medical History / Comment(s): Viral Meningitis November 2016, treated [facility], migraines History of Any Multi-Drug Resistant Organisms: None Reported Past Surgical History: Appendectomy, Section, Orthopedic Surgery, Uterine Ablation Additional Past Surgical History / Comment(s): jaw replaced, cyst on neck removed, D&C, 2 orthopedic surgeries R foot Past Anesthesia/Blood Transfusion Reactions: No Reported Reaction Past Psychological History: No Psychological Hx Reported Smoking Status: Former smoker Past Alcohol Use History: Occasional Past Drug Use History: None Reported - Past Family History Father Family Medical History: CVA/TIA Mother Family Medical History: Cancer, Diabetes Mellitus <Power Zhou - Last Filed: 05/07/21 15:22> General Exam Limitations: no limitations General appearance: alert, in no apparent distress Head exam: Present: atraumatic, normocephalic Eye exam: Present: normal appearance, PERRL ENT exam: Present: mucous membranes dry Neck exam: Present: normal inspection. Absent: tenderness, meningismus Respiratory exam: Present: normal lung sounds bilaterally. Absent: respiratory distress, wheezes Cardiovascular Exam: Present: regular rate, normal rhythm GI/Abdominal exam: Present: soft. Absent: distended, tenderness, guarding Extremities exam: Present: normal inspection, normal capillary refill. Absent: pedal edema Neurological exam: Present: alert, oriented X3, CN II-XII intact. Absent: motor sensory deficit Psychiatric exam: Present: normal affect, normal mood Skin exam: Present: warm, dry, intact. Absent: cyanosis, diaphoretic <Power Zhou - Last Filed: 05/07/21 15:22> Course <Power Zhou - Last Filed: 05/07/21 15:22> Vital Signs 05/07/21 05/07/21 13:51 15:14 Temperature 98.6 F Pulse Rate 83 71 Respiratory 18 18 Rate Blood Pressure 179/104 144/93 O2 Sat by Pulse 98 96 Oximetry - Reevaluation(s) Reevaluation #1: 05/07/21 1500 Patient care signed out to Dr. Levin at shift change awaiting laboratory testing, reevaluation, and imaging. (Power Zhou) Medical Decision Making - Lab Data Result diagrams: 05/07/21 14:19 05/07/21 14:19 <oPwer Zhou - Last Filed: 05/07/21 15:22> - Lab Data Result diagrams: 05/07/21 14:19 05/07/21 14:19 <Lindsey Levin - Last Filed: 05/07/21 16:04> - Lab Data Lab Results 05/07/21 05/07/21 05/07/21 Range/Units 14:19 14:19 14:19 WBC 7.5 (3.8-10.6) k/uL RBC 5.03 (3.80-5.40) m/uL Hgb 14.3 (11.4-16.0) gm/dL Hct 42.5 (34.0-46.0) % MCV 84.5 (80.0-100.0) fL MCH 28.4 (25.0-35.0) pg MCHC 33.6 (31.0-37.0) g/dL RDW 13.1 (11.5-15.5) % Plt Count 246 (150-450) k/uL MPV 8.8 Neutrophils % 67 % Lymphocytes % 24 % Monocytes % 4 % Eosinophils % 2 % Basophils % 1 % Neutrophils # 5.0 (1.3-7.7) k/uL Lymphocytes # 1.8 (1.0-4.8) k/uL Monocytes # 0.3 (0-1.0) k/uL Eosinophils # 0.2 (0-0.7) k/uL Basophils # 0.1 (0-0.2) k/uL Sodium 138 (137-145) mmol/L Potassium 4.2 (3.5-5.1) mmol/L Chloride 105 (98-107) mmol/L Carbon Dioxide 24 (22-30) mmol/L Anion Gap 9 mmol/L BUN 14 (7-17) mg/dL Creatinine 0.55 (0.52-1.04) mg/dL Est GFR (CKD-EPI)AfAm >90 (>60 ml/min/1.73 sqM) Est GFR (CKD-EPI)NonAf >90 (>60 ml/min/1.73 sqM) Glucose 96 (74-99) mg/dL Plasma Lactic Acid Nadir 1.3 (0.7-2.0) mmol/L Calcium 9.6 (8.4-10.2) mg/dL Magnesium 2.0 (1.6-2.3) mg/dL Total Bilirubin 0.6 (0.2-1.3) mg/dL AST 26 (14-36) U/L ALT 21 (4-34) U/L Alkaline Phosphatase 108 (38-126) U/L Total Protein 7.1 (6.3-8.2) g/dL Albumin 4.3 (3.5-5.0) g/dL Urine Color Urine Appearance (Clear) Urine pH (5.0-8.0) Ur Specific Julian (1.001-1.035) Urine Protein (Negative) Urine Glucose (UA) (Negative) Urine Ketones (Negative) Urine Blood (Negative) Urine Nitrite (Negative) Urine Bilirubin (Negative) Urine Urobilinogen (<2.0) mg/dL Ur Leukocyte Esterase (Negative) Coronavirus (PCR) (Not Detectd) 05/07/21 05/07/21 Range/Units 14:19 14:19 WBC (3.8-10.6) k/uL RBC (3.80-5.40) m/uL Hgb (11.4-16.0) gm/dL Hct (34.0-46.0) % MCV (80.0-100.0) fL MCH (25.0-35.0) pg MCHC (31.0-37.0) g/dL RDW (11.5-15.5) % Plt Count (150-450) k/uL MPV Neutrophils % % Lymphocytes % % Monocytes % % Eosinophils % % Basophils % % Neutrophils # (1.3-7.7) k/uL Lymphocytes # (1.0-4.8) k/uL Monocytes # (0-1.0) k/uL Eosinophils # (0-0.7) k/uL Basophils # (0-0.2) k/uL Sodium (137-145) mmol/L Potassium (3.5-5.1) mmol/L Chloride (98-107) mmol/L Carbon Dioxide (22-30) mmol/L Anion Gap mmol/L BUN (7-17) mg/dL Creatinine (0.52-1.04) mg/dL Est GFR (CKD-EPI)AfAm (>60 ml/min/1.73 sqM) Est GFR (CKD-EPI)NonAf (>60 ml/min/1.73 sqM) Glucose (74-99) mg/dL Plasma Lactic Acid Nadir (0.7-2.0) mmol/L Calcium (8.4-10.2) mg/dL Magnesium (1.6-2.3) mg/dL Total Bilirubin (0.2-1.3) mg/dL AST (14-36) U/L ALT (4-34) U/L Alkaline Phosphatase (38-126) U/L Total Protein (6.3-8.2) g/dL Albumin (3.5-5.0) g/dL Urine Color Light Yellow Urine Appearance Clear (Clear) Urine pH 6.0 (5.0-8.0) Ur Specific Julian 1.037 H (1.001-1.035) Urine Protein Negative (Negative) Urine Glucose (UA) Negative (Negative) Urine Ketones Negative (Negative) Urine Blood Negative (Negative) Urine Nitrite Negative (Negative) Urine Bilirubin Negative (Negative) Urine Urobilinogen <2.0 (<2.0) mg/dL Ur Leukocyte Esterase Negative (Negative) Coronavirus (PCR) Not Detected (Not Detectd) Disposition Is patient prescribed a controlled substance at d/c from ED?: No <Power Zhou - Last Filed: 05/07/21 15:22> <Lindsey Levin A - Last Filed: 05/07/21 16:04> Clinical Impression: Headache Disposition: HOME SELF-CARE Condition: Good Instructions (If sedation given, give patient instructions): Acute Headache (ED) Referrals: Jaime Chun MD [Primary Care Provider] - 1-2 days
[2021-05-07 14:44] LABS: Basophils # (A) 0.1 k/uL (0-0.2); Basophils % (A) 1 %; Eosinophils # (A) 0.2 k/uL (0-0.7); Eosinophils % (A) 2 %; HCT 42.5 % (34.0-46.0); HGB 14.3 gm/dL (11.4-16.0); Lymphocytes # (A) 1.8 k/uL (1.0-4.8); Lymphocytes % (A) 24 %; MCH 28.4 pg (25.0-35.0); MCHC 33.6 g/dL (31.0-37.0); MCV 84.5 fL (80.0-100.0); Mean Platelet Volume 8.8; Monocytes # (A) 0.3 k/uL (0-1.0); Monocytes % (A) 4 %; Neutrophils % (A) 67 %; Platelet Count 246 k/uL (150-450); RBC 5.03 m/uL (3.80-5.40); RDW 13.1 % (11.5-15.5); WBC 7.5 k/uL (3.8-10.6)
[2021-05-07 15:00] LABS: ALT 21 U/L (4-34); AST 26 U/L (14-36); African American GFR (CKD) >90 (>60 ml/min/1.73 sqM); Albumin 4.3 g/dL (3.5-5.0); Alkaline Phosphatase 108 U/L (38-126); Anion Gap 9 mmol/L; Blood Urea Nitrogen 14 mg/dL (7-17); Calcium 9.6 mg/dL (8.4-10.2); Carbon Dioxide 24 mmol/L (22-30); Chloride 105 mmol/L (98-107); Glucose 96 mg/dL (74-99); Non-African American GFR(CKD) >90 (>60 ml/min/1.73 sqM); Potassium 4.2 mmol/L (3.5-5.1); Sodium 138 mmol/L (137-145); Total Bilirubin 0.6 mg/dL (0.2-1.3); Total Protein 7.1 g/dL (6.3-8.2)
--- NOTE | 2021-05-07 15:08 | CT ---
EXAMINATION TYPE: CT brain wo con DATE OF EXAM: 05/07/2021 COMPARISON: 04/22/2017 INDICATION: headache and neck stiffness for 2 days. DLP: 2036.9 mGycm, Automated exposure control for dose reduction was used. CONTRAST: None CT of the brain is performed utilizing 3 mm thick sections through the posterior fossa and 3 mm thick sections through the remaining calvarium. Study is performed within 24 hours of arrival to the hosp [facility]. No abnormal hyperdensity is present to suggest an acute intracranial hemorrhage. No mass lesion is evident. No acute infarcts are evident. Ventricles and sulci are appropriate for the patient age. Paranasal sinuses and mastoid air cells within the [id number]-[id number] are clear. IMPRESSIONS: 1. Normal CT Brain
--- NOTE | 2021-05-07 15:12 | CT ---
EXAMINATION TYPE: CT angio COW tan[place] of [place] DATE OF EXAM: 05/07/2021 HISTORY: headache and neck stiffness for 2 days. COMPARISON: None CT DLP: 2036.9 mGycm. Automated Exposure Control for Dose Reduction was Utilized. TECHNIQUE: CTA scan of the brain is performed with IV Contrast, patient injected with 100 mL of Isov ue 370, axial images are obtained, coronal and sagittal reformatted images are reviewed. Three-D radha nstructed images are created on an independent workstation and reviewed. Source images are reviewed. FINDINGS: Cervical of Vill[place]: Vertebral basilar system appears normal. Posterior cerebral vasculature is unrema rkable. Internal carotid arteries bifurcate normally into A1 and M1 segments. Right A1 segment may be somewhat hypoplastic A2 segments are normal. The anterior communicating artery is patent. Left Poste rior communicating artery is patent. Right posterior communicating artery is absent. IMPRESSION: 1. Normal [place]
[2021-05-07] MEDS ORDERED: KETOROLAC 15 MG/ML 1 ML VIAL IVP STA (15:22)
[2021-05-07 15:40] LABS: Appearance,Urine Clear (Clear); Bilirubin,Urine Negative (Negative); Blood,Urine Negative (Negative); Color,Urine Light Yellow; Glucose,Urine (UA) Negative (Negative); Ketones,Urine Negative (Negative); Leukocyte Esterase,Urine Negative (Negative); Nitrite,Urine Negative (Negative); Protein,Urine Negative (Negative); Specific Gravity,Urine 1.037 (1.001-1.035); Urobilinogen,Urine <2.0 mg/dL (<2.0)
[2021-05-07 16:18] VITALS: BP 140/94; PULSE 72; TEMP 97.8
== END 2021-05-07 16:17 | disposition home or self-care (01) ==
LOC: EC 13:47
DX: R51.9 Headache, unspecified (principal); Z87.891 Personal history of nicotine dependence; Z88.8 Allergy status to other drugs, medicaments and biological substances; Z20.822 Contact with and (suspected) exposure to COVID-19
CPT/HCPCS: 36415; 80053; 83605; 83735; 85025; 81003; 87635; 70496; 70450; 99284; 96365; 96375; J1200; J2765; J2270; J3475; J1885; Q9967

== ENCOUNTER → 2021-10-22 | Outpatient (CLI) | payer BC ==
--- NOTE | 2021-10-23 10:04 | MM ---
Reason for exam: screening (asymptomatic). Last mammogram was performed 1 year ago. History: Patient is postmenopausal. Took hormonal contraceptives for 12 years. Physical Findings: A clinical breast exam by your physician is recommended on an annual basis and results should be correlated with mammographic findings. MG 3D Screening Mammo W/Cad Bilateral CC and MLO view(s) were taken. Prior study comparison: October 15, 2020, bilateral MG screening mammo w CAD. July 04, 2019, bilateral MG 3d diag mammo w/cad [facility]. The breast tissue is heterogeneously dense. This may lower the sensitivity of mammography. There is no discrete abnormality. No significant changes when compared with prior studies. ASSESSMENT: Negative, BI-RAD 1 RECOMMENDATION: Routine screening mammogram of both breasts in 1 year.
== END | disposition home or self-care (01) ==
LOC: RADMAMWWP 16:35
PROVIDERS: ATTEND Family Medicine
DX: Z12.39 Encounter for other screening for malignant neoplasm of breast (principal)
CPT/HCPCS: 77063; 77067

== ENCOUNTER → 2022-05-03 | Outpatient (CLI) | payer BC ==
[2022-05-03 17:17] LABS: ALT 15 U/L (8-44); AST 16 U/L (13-35); African American GFR (CKD) 115.5 (60.0-200.0); Albumin 4.3 g/dL (3.8-4.9); Albumin/Globulin Ratio 1.65 (1.60-3.17); Alkaline Phosphatase 99 U/L (41-126); BUN/Creat Ratio 20.29 Ratio (12.00-20.00); Blood Urea Nitrogen 14.2 mg/dL (9.0-27.0); C Reactive Protein <0.30 mg/dL (0.00-0.80); Calcium 9.2 mg/dL (8.7-10.3); Carbon Dioxide 25.4 mmol/L (20.0-27.5); Chloride 105 mmol/L (96-109); Globulin 2.6 g/dL (1.6-3.3); Glucose 104 mg/dL (70-110); Non-African American GFR(CKD) 99.6 (60.0-200.0); Potassium 4.6 mmol/L (3.5-5.5); Sodium 141 mmol/L (135-145); Total Protein 6.9 g/dL (6.2-8.2)
== END ==
LOC: LABWHC1 10:35
PROVIDERS: ATTEND Family Medicine
DX: H66.009 Acute suppurative otitis media without spontaneous rupture of ear drum, unspecified ear (principal); Z88.8 Allergy status to other drugs, medicaments and biological substances; Z87.891 Personal history of nicotine dependence
CPT/HCPCS: 36415; 80053; 85652; 86140

== ENCOUNTER → 2022-05-05 | Outpatient (CLI) | payer BC ==
--- NOTE | 2022-05-05 13:00 | CT ---
EXAMINATION TYPE: CT iac w con CT DLP: 150 mGycm, Automated exposure control for dose reduction was used. DATE OF EXAM: 05/05/2022 8:08 AM INDICATION: Patient age:Female; 52 years old; Reason for study: H66.009 acute suppurative otitis media; COMPARISON: CT brain 05/07/2021. TECHNIQUE: Multiple thin axial images were obtained through the temporal bones and internal auditory canals. Additional coronal reformatted images were obtained. 70 cc of Isovue-370 IV contrast was ut ilized. FINDINGS: Right Temporal Bone: External Ear: The external auditory canal is unremarkable, The tympanic membrane is present and unrem arkable. Middle Ear: The ossicles demonstrate a normal appearance. Prussak's space is clear and the scutum i s intact. There is no evidence of osseous erosion and the tegmen tympani is intact. Inner Ear: Cochlea, vestibule and semi circular canals are unremarkable. No evidence of carotid hawa l dehiscence. Two and a half turns of the cochlea are identified. The vestibular aqueduct is not enl arged. Mastoid Air Cells: The mastoid air cells are clear. The tegmen mastoideum is intact. The aditus ad an trum is clear. Internal Auditory Canal: The internal auditory canal is unremarkable. Left Temporal Bone: External Ear: The external auditory canal is unremarkable, there is thickening of the tympanic membra ne. Middle Ear: The ossicles demonstrate a normal appearance. Opacification of Prussak's space without evidence of osseous erosion. The tegmen tympani is intact. Opacification of the epitympanum, mesotymp chandan, and hypotympanum. Inner Ear: Cochlea, vestibule and semi circular canals are unremarkable. No evidence of carotid hawa l dehiscence. Two and a half turns of the cochlea are identified. The vestibular aqueduct is not enl arged. Mastoid Air Cells: Partial opacification of the mastoid air cells. The tegmen mastoideum is intact. T he aditus ad antrum is clear. Internal Auditory Canal: The internal auditory canal is unremarkable. Opacification of the left eustachian tube. Mild mucosal thickening of the bilateral maxillary and sphenoid sinus. No visualized abnormal contras t enhancement. Visualized vasculature is unremarkable. IMPRESSION: Findings consistent with left otitis medial and small left mastoid effusion with opacification of the left eustachian tube. No osseous erosions identified.
== END | disposition home or self-care (01) ==
LOC: RADCTMAIN 07:33
PROVIDERS: ATTEND Family Medicine
DX: H66.009 Acute suppurative otitis media without spontaneous rupture of ear drum, unspecified ear (principal)
CPT/HCPCS: 70481; Q9967

== ENCOUNTER 2022-08-02 10:45 | Emergency (ER) | payer BC ==
[2022-08-02] MEDS ORDERED: CYCLOBENZAPRINE 10MG STARTER 3 TAB BTL PO STA (17:08)
[2022-08-02] MEDS ORDERED: AMOXIC-POT CLAV 875MG STARTER PACK 2 TAB BTL PO STA (17:08)
[2022-08-02 17:30] VITALS: BP 150/100; PULSE 80; RESP 16
== END 2022-08-02 17:30 | disposition home or self-care (01) ==
LOC: EC 10:45
DX: G44.209 Tension-type headache, unspecified, not intractable (principal); Z20.822 Contact with and (suspected) exposure to COVID-19
CPT/HCPCS: 87502; 87635; 99283

== ENCOUNTER 2022-09-05 22:11 | Emergency (ER) | payer BC ==
[2022-09-05 22:36] VITALS: TEMP 97.7
[2022-09-06 00:07] LABS: Basophils % (A) 1 %; Eosinophils # (A) 0.1 k/uL (0-0.7); Eosinophils % (A) 2 %; HCT 37.3 % (34.0-46.0); HGB 13.6 gm/dL (11.4-16.0); Lymphocytes # (A) 1.6 k/uL (1.0-4.8); Lymphocytes % (A) 23 %; MCH 29.8 pg (25.0-35.0); MCHC 36.3 g/dL (31.0-37.0); Mean Platelet Volume 8.3; Monocytes # (A) 0.4 k/uL (0-1.0); Monocytes % (A) 5 %; Neutrophils # (A) 4.7 k/uL (1.3-7.7); Neutrophils % (A) 68 %; Platelet Count 233 k/uL (150-450); RBC 4.55 m/uL (3.80-5.40); RDW 11.8 % (11.5-15.5); WBC 6.9 k/uL (3.8-10.6)
--- NOTE | 2022-09-06 00:22 | XR ---
EXAMINATION TYPE: XR chest 2V DATE OF EXAM: 09/05/2022 COMPARISON: 05/05/2016 HISTORY: Chest pain TECHNIQUE: 2 views FINDINGS: Heart and mediastinum are normal. Lungs are clear. Diaphragm is normal. Bony thorax appears normal. IMPRESSION: Normal chest. No change.
[2022-09-06 00:24] LABS: ALT 17 U/L (4-34); AST 19 U/L (14-36); African American GFR (CKD) >90 (>60 ml/min/1.73 sqM); Albumin 4.2 g/dL (3.5-5.0); Alkaline Phosphatase 81 U/L (38-126); Anion Gap 8 mmol/L; Blood Urea Nitrogen 11 mg/dL (7-17); Calcium 8.9 mg/dL (8.4-10.2); Carbon Dioxide 26 mmol/L (22-30); Chloride 105 mmol/L (98-107); Glucose 107 mg/dL (74-99); Magnesium 2.1 mg/dL (1.6-2.3); Non-African American GFR(CKD) >90 (>60 ml/min/1.73 sqM); Potassium 3.9 mmol/L (3.5-5.1); Sodium 139 mmol/L (137-145); Total Bilirubin 0.4 mg/dL (0.2-1.3); Total Protein 6.6 g/dL (6.3-8.2)
[2022-09-06 00:37] LABS: Partial Thromboplastin Time 28.7 sec (22.0-30.0); Prothrombin Time 10.7 sec (9.0-12.0)
--- NOTE | 2022-09-06 00:54 | ED ---
General Adult HPI - General Chief complaint: Chest Pain Stated complaint: high blood pressure,numbness hands Time Seen by Provider: 09/05/22 22:47 Source: patient Mode of arrival: wheelchair Limitations: no limitations - History of Present Illness Initial comments: Patient is a 52-year-old female who presents to the emergency department for burning in her chest and elevated blood pressure. She reports that she began having symptoms this evening when she was at home. He states that she felt like her pressure that started in the central portion of her chest and radiated outwards. Denies that it was painful. She felt flushed in the face. She took her blood pressure which was high and came into the emergency room for evaluation. She does have a history of high blood pressure. States that she takes losartan daily. Her primary care physician has given her clonidine to take up to 3 times daily when her blood pressure is high for which she did take 1 dose around 9 PM this evening. She was also told by her primary care physician to not take her blood pressure daily because she used to check her blood pressure daily however it always elevated her readings. Her primary care physician also put her on Prozac as I thought there is a component of anxiety. Patient denies any shortness of breath. No fevers, chills or cough. No calf pain or swelling. No history of DVT or PE. No personal history of cardiac disease. No family history of sudden cardiac . No other alleviating, the dictating or modifying factors - Related Data Previous Rx's Medication Instructions Recorded Amoxic-Pot Clav 875-125Mg 1 tab PO Q12HR 7 Days #14 tab 08/02/22 [Augmentin 875-125] Cyclobenzaprine [Flexeril] 10 mg PO TID PRN #15 tab 08/02/22 Allergies Allergy/AdvReac Type Severity Reaction Status Date / Time antihistamines Allergy Unknown Uncoded 05/07/21 15:57 decongestants Allergy Unknown Uncoded 05/07/21 15:57 Review of Systems ROS Statement: Those systems with pertinent positive or pertinent negative responses have been documented in the HPI. ROS Other: All systems not noted in ROS Statement are negative. Past Medical History Past Medical History: Hypertension Additional Past Medical History / Comment(s): Viral Meningitis November 2016, treated [facility], migraines History of Any Multi-Drug Resistant Organisms: None Reported Past Surgical History: Appendectomy, Section, Orthopedic Surgery, Uterine Ablation Additional Past Surgical History / Comment(s): jaw replaced, cyst on neck removed, D&C, 2 orthopedic surgeries R foot Past Anesthesia/Blood Transfusion Reactions: No Reported Reaction Past Psychological History: No Psychological Hx Reported Smoking Status: Former smoker Past Alcohol Use History: Occasional Past Drug Use History: None Reported - Past Family History Father Family Medical History: CVA/TIA Mother Family Medical History: Cancer, Diabetes Mellitus General Exam Limitations: no limitations General appearance: alert, in no apparent distress Head exam: Present: atraumatic, normocephalic, normal inspection Eye exam: Present: normal appearance, PERRL, EOMI. Absent: scleral icterus, co njunctival injection, periorbital swelling ENT exam: Present: normal exam, mucous membranes moist Neck exam: Present: normal inspection. Absent: tenderness, meningismus, lymphadenopathy Respiratory exam: Present: normal lung sounds bilaterally. Absent: respiratory distress, wheezes, rales, rhonchi, stridor Cardiovascular Exam: Present: regular rate, normal rhythm, normal heart sounds. Absent: systolic murmur, diastolic murmur, rubs, gallop, clicks GI/Abdominal exam: Present: soft, normal bowel sounds. Absent: distended, tenderness, guarding, rebound, rigid Extremities exam: Present: normal inspection, full ROM, normal capillary refill. Absent: tenderness, pedal edema, joint swelling, calf tenderness Back exam: Present: normal inspection Neurological exam: Present: alert, oriented X3, CN II-XII intact Psychiatric exam: Present: normal affect, normal mood Skin exam: Present: warm, dry, intact, normal color. Absent: rash Course Vital Signs 09/05/22 09/06/22 22:33 01:10 Temperature 97.7 F Pulse Rate 92 78 Respiratory 16 19 Rate Blood Pressure 161/92 134/91 O2 Sat by Pulse 98 99 Oximetry EKG Findings - EKG Comments: EKG Findings:: EKG demonstrates sinus rhythm with a rate of 88. [place] interval 149. QRS 104. QTC of 409. No acute ST segment elevations or depressions. EKG is interpreted by myself Medical Decision Making - Medical Decision Making Upon arrival patient was placed into room 4. A thorough history and physical exam was performed. IV access established. Lab studies were conducted. A 12- lead EKG was performed. Patient remained on continuous pulse ox and cardiac monitoring throughout her stay. No signs of ectopy or tachycardia. Chest x-ray is additionally performed. Laboratory studies within normal limits. Chest x-ra y demonstrates no acute findings. Results are discussed with the patient. Her blood pressure does improve throughout her stay area blood pressure of 134/91 without treatment by myself. At this time the patient feels comfortable with discharge home. She is to talk to her primary care doctor about further recommendations in regards to blood pressure control. Patient was agreeable to this. Also recommended Holter monitoring. She have any new or worsening symptoms she should return to the emergency room. Patient discharged home in stable condition - Lab Data Result diagrams: 09/05/22 23:53 09/05/22 23:53 Lab Results 09/05/22 09/05/22 09/05/22 Range/Units 23:53 23:53 23:53 WBC 6.9 (3.8-10.6) k/uL RBC 4.55 (3.80-5.40) m/uL Hgb 13.6 (11.4-16.0) gm/dL Hct 37.3 (34.0-46.0) % MCV 82.0 (80.0-100.0) fL MCH 29.8 (25.0-35.0) pg MCHC 36.3 (31.0-37.0) g/dL RDW 11.8 (11.5-15.5) % Plt Count 233 (150-450) k/uL MPV 8.3 Neutrophils % 68 % Lymphocytes % 23 % Monocytes % 5 % Eosinophils % 2 % Basophils % 1 % Neutrophils # 4.7 (1.3-7.7) k/uL Lymphocytes # 1.6 (1.0-4.8) k/uL Monocytes # 0.4 (0-1.0) k/uL Eosinophils # 0.1 (0-0.7) k/uL Basophils # 0.0 (0-0.2) k/uL PT 10.7 (9.0-12.0) sec INR 1.0 (<1.2) APTT 28.7 (22.0-30.0) sec Sodium 139 (137-145) mmol/L Potassium 3.9 (3.5-5.1) mmol/L Chloride 105 (98-107) mmol/L Carbon Dioxide 26 (22-30) mmol/L Anion Gap 8 mmol/L BUN 11 (7-17) mg/dL Creatinine 0.61 (0.52-1.04) mg/dL Est GFR (CKD-EPI)AfAm >90 (>60 ml/min/1.73 sqM) Est GFR (CKD-EPI)NonAf >90 (>60 ml/min/1.73 sqM) Glucose 107 H (74-99) mg/dL Calcium 8.9 (8.4-10.2) mg/dL Magnesium 2.1 (1.6-2.3) mg/dL Total Bilirubin 0.4 (0.2-1.3) mg/dL AST 19 (14-36) U/L ALT 17 (4-34) U/L Alkaline Phosphatase 81 (38-126) U/L Troponin I (0.000-0.034) ng/mL Total Protein 6.6 (6.3-8.2) g/dL Albumin 4.2 (3.5-5.0) g/dL TSH 1.970 (0.465-4.680) mIU/L 09/05/22 Range/Units 23:53 WBC (3.8-10.6) k/uL RBC (3.80-5.40) m/uL Hgb (11.4-16.0) gm/dL Hct (34.0-46.0) % MCV (80.0-100.0) fL MCH (25.0-35.0) pg MCHC (31.0-37.0) g/dL RDW (11.5-15.5) % Plt Count (150-450) k/uL MPV Neutrophils % % Lymphocytes % % Monocytes % % Eosinophils % % Basophils % % Neutrophils # (1.3-7.7) k/uL Lymphocytes # (1.0-4.8) k/uL Monocytes # (0-1.0) k/uL Eosinophils # (0-0.7) k/uL Basophils # (0-0.2) k/uL PT (9.0-12.0) sec INR (<1.2) APTT (22.0-30.0) sec Sodium (137-145) mmol/L Potassium (3.5-5.1) mmol/L Chloride (98-107) mmol/L Carbon Dioxide (22-30) mmol/L Anion Gap mmol/L BUN (7-17) mg/dL Creatinine (0.52-1.04) mg/dL Est GFR (CKD-EPI)AfAm (>60 ml/min/1.73 sqM) Est GFR (CKD-EPI)NonAf (>60 ml/min/1.73 sqM) Glucose (74-99) mg/dL Calcium (8.4-10.2) mg/dL Magnesium (1.6-2.3) mg/dL Total Bilirubin (0.2-1.3) mg/dL AST (14-36) U/L ALT (4-34) U/L Alkaline Phosphatase (38-126) U/L Troponin I <0.012 (0.000-0.034) ng/mL Total Protein (6.3-8.2) g/dL Albumin (3.5-5.0) g/dL TSH (0.465-4.680) mIU/L Disposition Clinical Impression: Hypertension Disposition: HOME SELF-CARE Condition: Stable Instructions (If sedation given, give patient instructions): Hypertension (ED) Additional Instructions: Please follow-up with your primary care doctor and discuss treatment for your elevated high blood pressure. You may benefit from wearing a Holter monitor which they can set you up for. Return to the emergency room for any new or worsening symptoms Is patient prescribed a controlled substance at d/c from ED?: No Referrals: Jaime Chun MD [Primary Care Provider] - 1-2 days Time of Disposition: 01:44
[2022-09-06 01:11] VITALS: BP 134/91; PULSE 78; RESP 19
== END 2022-09-06 02:27 | disposition home or self-care (01) ==
LOC: EC 22:11
DX: I10 Essential (primary) hypertension (principal); Z88.8 Allergy status to other drugs, medicaments and biological substances; Z79.899 Other long term (current) drug therapy; Z87.891 Personal history of nicotine dependence
CPT/HCPCS: 36415; 71046; 80053; 83735; 84443; 84484; 85025; 85610; 85730; 93005; 99285

== ENCOUNTER 2023-10-13 08:34 | Day surgery (SDC) | payer BC ==
[2023-10-06 09:48] VITALS: BMI 27.4
[~2023-10-13 08:34] MED LIST changes: -ACETAMINOPHEN TAB 500 MG TAB PO ONE; -ACETAMINOPHEN TAB 500 MG TAB PO STA; -DEXAMETHASONE SOD PHOSPHATE 10 MG/ML 1 ML VIAL IV ONE; -GLYCOPYRROLATE 0.2 MG/ML 2 ML VIAL ONE; -HEPARIN SODIUM,PORCINE 5,000 UNIT/ML 1 ML VIAL SQ ONE; -INDOCYANINE GREEN 25 MG VIAL IV ONE; -KETOROLAC 30 MG/ML 1 ML VIAL ONE; -LACTATED RINGERS 1,000 ML IV ONE; -LIDOCAINE 1% 20 ML VIAL (10MG/ML) FOR IV START INTRADERMA ONE; -LIDOCAINE 1% INJ 10MG/ML (20 ML MDV) ONE; -LIDOCAINE 1%-EPI 1:100,000 20 ML VIAL SQ ONE; -MIDAZOLAM 2 MG/2 ML VIAL IV PRN; -MIDAZOLAM 2 MG/2 ML VIAL ONE; -NEOSTIGMINE 1 MG/ML 10 ML VIAL ONE; -ONDANSETRON 4 MG/2 ML VIAL IVP ONE; -PROPOFOL 10 MG/ML 20 ML VIAL IV ONE; -ROCURONIUM BROMIDE 10 MG/ML 10 ML VIAL IV ONE; -SCOPOLAMINE 1.5MG/72HR PATCH TRANSDERM ONE; -SCOPOLAMINE 1.5MG/72HR PATCH TRANSDERM STA; -SIMETHICONE 80 MG CHEWABLE PO ONE; -SUCCINYLCHOLINE CHLORIDE 100 MG/5 ML SYR IV ONE; -fentaNYL (PF) 50 MCG/ML 2 ML AMP ONE
[2023-10-13 09:06] VITALS: TEMP 98.9
[2023-10-13 09:07] LABS: Glucose,Whole Blood 98 mg/dL (70-110)
[2023-10-13] MEDS ORDERED: PROPOFOL 10 MG/ML 20 ML VIAL IV ONE (09:38)
--- NOTE | 2023-10-13 09:42 | P.PCN ---
Date of Procedure: 10/13/23 Procedure(s) Performed: BRIEF HISTORY: Patient is a 53-year-old pleasant white female scheduled for an elective colonoscopy as a part of screening for colon cancer PROCEDURE PERFORMED: Colonoscopy. PREOPERATIVE DIAGNOSIS: Screening for colon cancer. IV sedation per Anesthesia. PROCEDURE: After informed consent was obtained, the patient, was brought into the endoscopy unit. IV sedation was administered by Anesthesia under continuous monitoring. Digital rectal examination was normal. Initially the Olympus CF-160 flexible video colonoscope was then inserted in the rectum, gradually advanced into the cecum without any difficulty. Careful examination was performed as the scope was gradually being withdrawn. Ileocecal valve and the appendiceal orifice were visualized and appeared normal. Prep was excellent. Mucosa of the cecum, ascending colon, transverse colon, descending colon, sigmoid colon, and rectum appeared normal. Retroflexion was performed in the rectum and no lesions were seen. The patient tolerated the procedure well. IMPRESSION: Normal-appearing colon from rectum to cecum with no evidence of colorectal neoplasia . RECOMMENDATIONS: Findings of this examination were discussed with the patient as well as her family. She was advised to have a repeat screening colonoscopy in 10 years..
[2023-10-13 10:40] VITALS: BP 152/98; PULSE 67; RESP 14
== END 2023-10-13 10:41 | disposition home or self-care (01) ==
LOC: ORWHC2ENDO 08:34
PROVIDERS: ATTEND Internal Medicine Gastroenterology
DX: Z12.11 Encounter for screening for malignant neoplasm of colon (principal); K57.30 Diverticulosis of large intestine without perforation or abscess without bleeding; I10 Essential (primary) hypertension; H91.90 Unspecified hearing loss, unspecified ear; G43.909 Migraine, unspecified, not intractable, without status migrainosus; E11.9 Type 2 diabetes mellitus without complications; Z79.84 Long term (current) use of oral hypoglycemic drugs; Z79.899 Other long term (current) drug therapy; Z88.8 Allergy status to other drugs, medicaments and biological substances; Z87.891 Personal history of nicotine dependence
CPT/HCPCS: 81025; 45378; J2704

== ENCOUNTER → 2023-12-21 | Outpatient (CLI) | payer BC ==
--- NOTE | 2023-12-24 08:42 | MM ---
Reason for Exam: Screening (asymptomatic). Last mammogram was performed 1 year(s) and 1 month(s) ago. Patient History: Menarche at age 12. First Full-Term at age 30. Late child-bearing (after 30). Postmenopausal. Patient used Hormonal Contraceptives for 12 years. Risk Values: Sophie 5 year model risk: 1.5%. NCI Lifetime model risk: 11.6%. Prior Study Comparison: 10/15/2020 Bilateral Screening Mammogram, [facility]. 10/22/2021 Bilateral Screening Mammogram, [facility]. 11/04/2022 Bilateral MG 3D screening mammo w/cad, [facility]. Tissue Density: The breasts are heterogeneously dense, which may obscure small masses. Findings: Analyzed By CAD. There is no suspicious group of microcalcifications or new suspicious mass in either breast. Stable lymph node in the left axilla scattered punctate benign calcification. Overall Assessment: Benign, BI-RAD 2 Management: Screening Mammogram of both breasts in 1 year. . Patient should continue monthly self-breast exams. A clinical breast exam by your physician is recommended on an annual basis. This exam should not preclude additional follow-up of suspicious palpable abnormalities. Note on Sophie scores and lifetime risk: 1. A Sophie score greater than 3% is considered moderate risk. If this is the case, consider specialist referral to assess eligibility for a risk reducing agent. 2. If overall lifetime risk for the development of breast cancer is 20% or higher, the patient may qualify for future screening with alternating mammogram and breast MRI. Electronically signed and approved by: Jaime Valverde M.D. Radiologis
== END | disposition home or self-care (01) ==
LOC: RADMAMWWP 08:30
PROVIDERS: ATTEND Family Medicine
DX: Z12.31 Encounter for screening mammogram for malignant neoplasm of breast (principal); Z78.0 Asymptomatic menopausal state
CPT/HCPCS: 77063; 77067

== ENCOUNTER → 2025-01-26 | Outpatient (CLI) | payer BC ==
--- NOTE | 2025-01-27 07:18 | MM ---
Reason for Exam: Screening (asymptomatic). Last mammogram was performed 1 year(s) and 2 month(s) ago. Patient History: Menarche at age 12. First Full-Term at age 30. Late child-bearing (after 30). Postmenopausal. Patient used Hormonal Contraceptives for 12 years. Risk Values: Sophie 5 year model risk: 1.6%. NCI Lifetime model risk: 11.4%. Prior Study Comparison: 10/22/2021 Bilateral Screening Mammogram, [facility]. 11/04/2022 Bilateral MG 3D screening mammo w/cad, [facility]. 12/21/2023 Bilateral MG 3D screening mammo w/cad, [facility]. Tissue Density: The breasts are heterogeneously dense, which may obscure small masses. Findings: Analyzed By CAD. There is no suspicious group of microcalcifications or new suspicious mass in either breast. Overall Assessment: Negative, BI-RAD 1 Management: Screening Mammogram of both breasts in 1 year. . Patient should continue monthly self-breast exams. A clinical breast exam by your physician is recommended on an annual basis. This exam should not preclude additional follow-up of suspicious palpable abnormalities. Note on Sophie scores and lifetime risk: 1. A Sophie score greater than 3% is considered moderate risk. If this is the case, consider specialist referral to assess eligibility for a risk reducing agent. 2. If overall lifetime risk for the development of breast cancer is 20% or higher, the patient may qualify for future screening with alternating mammogram and breast MRI. [facility], , 01/27/2025 7:15 AM. Electronically signed and approved by: John Sims M.D.
== END | disposition home or self-care (01) ==
LOC: RADMAMWWP 16:24
PROVIDERS: ATTEND Family Medicine
DX: Z12.31 Encounter for screening mammogram for malignant neoplasm of breast (principal); R92.333 Mammographic heterogeneous density, bilateral breasts; Z78.0 Asymptomatic menopausal state; Z92.0 Personal history of contraception
CPT/HCPCS: 77063; 77067